=== PATIENT | male | born 1940 | race Caucasian/White ===

== ENCOUNTER 2020-06-15 13:30 | Inpatient (IN) | payer MEDICARE, OTHER ==
[~2020-06-15] VITALS: Ht 172.7 cm; Wt 84.8 kg
[~2020-06-15 13:30] MED LIST: AMLODIPINE BESYL5 MG ORAL; ASPIR 8181 MG ORAL; CARVEDILOL12.5 MG ORAL; CRESTOR10 M2 ORAL; DOCUSATE SODIU100 MG ORAL; ELIQUIS5 MG PO; FLOMAX0.4 MG ORAL; FLUOXETINE HCL20 MG ORAL; FUROSEMIDE20 M1 ORAL; GABAPENTIN600 MG ORAL; HALOPERIDOL1 MG ORAL; KLONOPIN0.5 MG ORAL; LORAZEPAM2 MG/1 M1 IV; METFORMIN HCL500 M1 ORAL; MIRTAZAPINE15 M3 ORAL; MISOPROSTOL200 MCG PO; OXYBUTYNIN CHLOR5 M1 ORAL; PANTOPRAZOLE SO40 MG ORAL; REPAGLINIDE2 MG PO; TEMAZEPAM15 MG ORAL; TOPIRAMATE100 MG ORAL; ZOLPIDEM TARTRAT5 MG ORAL
[2020-06-15] MEDS ORDERED: SAPHRIS10 MG SL (13:39)
[2020-06-15 14:00] VITALS: BP 106/59
--- NOTE | 2020-06-15 14:24 | Emergency Room Report ---
History of Present Illness General Chief Complaint: Multiple Trauma/Fall Source: Patient, EMS Present Illness HPI Patient is a 79-year-old male presents for fall At a facility. Patient had been sent in from [facility]. Had been found lying on the ground. Unknown mechanism of fall. Had not been having any known emesis.Patient had apparently become more confused. Prior history of psychosis. Had apparently been able to schedule an appointment with his doctor and had been high functioning up to this point. Unknown onset of altered mental status. Previous history of urinary tract infections. History is primarily obtained from patient's daughter and ambulance staff. History of chronic A. fib as well as anticoagulant use. 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 COVID-19 Screening: Negative COVID-19 COVID-19 Testing Source: long-term Patient History Past Medical History: see triage record Past Surgical History: unable to obtain Reviewed Nursing Documentation: PMH: Agreed; PSxH: Agreed Nursing Documentation-PMH Hx Hypertension: Yes Hx Asthma: Yes Hx Diabetes: Yes Hx Seizures: Yes Review of Systems All Other Systems: limited - Review of systems: Review systems is limited by patient's being a poor historian Physical Exam Vital Signs Date Time Temp Pulse Resp B/P (MAP) Pulse Ox O2 Delivery O2 Flow Rate FiO2 06/15/20 13:32 94.3 40 16 95/52 (66) General Appearance: alert, moderate distress, obese, Chronically Ill Neck: limited range of motion Respiratory: normal inspection, lungs clear Cardiovascular #1: normal inspection, no edema, edema Gastrointestinal: normal inspection, soft Musculoskeletal: back normal Neurologic: alert, motor strength/tone normal, 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 Differential diagnosis includes not limited to syncopal episode, bowel obstruction, pneumonia, GI bleed, medication overdose among others. Because of complexity of patient's case laboratory tests and imaging studies were ordered. Patient was noted to be initially somnolent with bradycardic rhythm in the 40s.Patient was noted to be somewhat bradycardic initially was given IV atropine due to bradycardia. Laboratory testing shows evidence of urinary infection. Patient was given IV antibiotics. No intracranial hemorrhage was seen on CT imaging. Dr. Carly Navarrete was contacted for inpatient management. Labs Test 06/15/20 14:45 06/15/20 15:15 White Blood Count 12.0 K/UL (4.8-10.8) Red Blood Count 3.07 M/UL (4.70-6.10) Hemoglobin 9.5 G/DL (14.2-18.0) Hematocrit 27.9 % (42.0-52.0) Mean Corpuscular Volume 91 FL (80-99) Mean Corpuscular Hemoglobin 31.0 PG (27.0-31.0) Mean Corpuscular Hemoglobin Concent 34.1 G/DL (32.0-36.0) Red Cell Distribution Width 13.6 % (11.6-14.8) Platelet Count 245 K/UL (150-450) Mean Platelet Volume 7.3 FL (6.5-10.1) Neutrophils (%) (Auto) 71.2 % (45.0-75.0) Lymphocytes (%) (Auto) 16.9 % (20.0-45.0) Monocytes (%) (Auto) 9.1 % (1.0-10.0) Eosinophils (%) (Auto) 2.0 % (0.0-3.0) Basophils (%) (Auto) 0.8 % (0.0-2.0) Prothrombin Time 10.9 SEC (9.30-11.50) Prothromb Time International Ratio 1.0 (0.9-1.1) Activated Partial Thromboplast Time 31 SEC (23-33) Sodium Level 142 MMOL/L (136-145) Potassium Level 3.7 MMOL/L (3.5-5.1) Chloride Level 107 MMOL/L (98-107) Carbon Dioxide Level 25 MMOL/L (21-32) Anion Gap 11 mmol/L (5-15) Blood Urea Nitrogen 46 mg/dL (7-18) Creatinine 2.0 MG/DL (0.55-1.30) Estimat Glomerular Filtration Rate 32.6 mL/min (>60) Glucose Level 110 MG/DL (74-106) Lactic Acid Level 1.40 mmol/L (0.4-2.0) Calcium Level 8.7 MG/DL (8.5-10.1) Total Bilirubin 0.2 MG/DL (0.2-1.0) Aspartate Amino Transf (AST/SGOT) 38 U/L (15-37) Alanine Aminotransferase (ALT/SGPT) 22 U/L (12-78) Alkaline Phosphatase 117 U/L (46-116) Troponin I 0.019 ng/mL (0.000-0.056) C-Reactive Protein, Quantitative 1.2 mg/dL (0.00-0.90) Total Protein 6.5 G/DL (6.4-8.2) Albumin 2.7 G/DL (3.4-5.0) Globulin 3.8 g/dL Albumin/Globulin Ratio 0.7 (1.0-2.7) Urine Color Pale yellow Urine Appearance Very cloudy Urine pH 5 (4.5-8.0) Urine Specific [place] 1.015 (1.005-1.035) Urine Protein 2+ (NEGATIVE) Urine Glucose (UA) Negative (NEGATIVE) Urine Ketones Negative (NEGATIVE) Urine Blood 5+ (NEGATIVE) Urine Nitrite Positive (NEGATIVE) Urine Bilirubin Negative (NEGATIVE) Urine Urobilinogen Normal MG/DL (0.0-1.0) Urine Leukocyte Esterase 3+ (NEGATIVE) Urine RBC Tntc /HPF (0 - 0) Urine WBC Tntc /HPF (0 - 0) Urine Squamous Epithelial Cells None /LPF (NONE/OCC) Urine Bacteria Many /HPF (NONE) EKG Diagnostic Results EKG Time: 14:38 Rate: bradycardiac - 41 Rhythm: NSR, other ST Segments: no acute changes Last Vital Signs Date Time Temp Pulse Resp B/P (MAP) Pulse Ox O2 Delivery O2 Flow Rate FiO2 06/15/20 13:32 94.3 40 16 95/52 (66) Status: unchanged Disposition: ADMITTED INPATIENT Condition: Stable Dell Peterson MD Jun 15, 2020 14:24
[2020-06-15] MEDS ORDERED: Atropine Sulfate 0.4mg/ml inj IVP ONE (14:45)
[2020-06-15 15:45] VITALS: BP 116/66
[2020-06-15 15:46] LABS: BASOPHILS % (AUTO) 0.8 % (0.0-2.0); HEMATOCRIT 27.9 % (42.0-52.0); HEMOGLOBIN 9.5 G/DL (14.2-18.0); LYMPHOCYTES % (AUTO) 16.9 % (20.0-45.0); MEAN CORPUSCULAR VOLUME 91 FL (80-99); MONOCYTES % (AUTO) 9.1 % (1.0-10.0); NEUTROPHILS % (AUTO) 71.2 % (45.0-75.0); PLATELET COUNT 245 K/UL (150-450); RED BLOOD COUNT 3.07 M/UL (4.70-6.10); RED CELL DISTRIBUTION WIDTH 13.6 % (11.6-14.8)
[2020-06-15 16:44] LABS: APPEARANCE,URINE VERY CLOUDY; BILIRUBIN, URINE NEGATIVE (NEGATIVE); COLOR,URINE PALE YELLOW; GLUCOSE, URINE (UA) NEGATIVE (NEGATIVE); KETONES,URINE NEGATIVE (NEGATIVE); LEUKOCYTE ESTERASE ,URINE 3+ (NEGATIVE); NITRITE,URINE POSITIVE (NEGATIVE); PH,URINE 5 (4.5-8.0); PROTEIN,URINE 2+ (NEGATIVE); UROBILINOGEN,URINE NORMAL MG/DL (0.0-1.0)
[2020-06-15 16:50] LABS: CALCIUM 8.7 MG/DL (8.5-10.1); POTASSIUM 3.7 MMOL/L (3.5-5.1)
[2020-06-15 16:59] LABS: ALBUMIN 2.7 G/DL (3.4-5.0); ALBUMIN/GLOBULIN RATIO 0.7 (1.0-2.7); BILIRUBIN,TOTAL 0.2 MG/DL (0.2-1.0)
[2020-06-15] MEDS ORDERED: cefTRIAXone 1 GM in NS 55 ML IVPB ONE (17:00)
--- NOTE | 2020-06-15 17:23 | Diagnostic Imaging Report ---
Indication: Abdominal pain, status post fall Technique: Spiral acquisitions obtained through the abdomen and pelvis. No oral contrast utilized, per emergency room physician request No IV contrast utilized, per referring physician request.. Multiplanar reconstructions were generated. Total dose length product 691 mGycm. CTDIvol(s) 11, 7 mGy. Dose reduction achieved using automated exposure control Comparison: None Findings: Lack of enteric contrast limits assessment of the GI tract. The appendix is not definitely identified, but no findings to suggest acute appendicitis are evident. There are colonic diverticula. Considerable retained dense stool is seen within the colon. There is no evidence of diverticulitis. No small bowel distention. No free or loculated intraperitoneal gas or fluid is evident. Distal esophagus, stomach, duodenum are unremarkable. Lack of IV contrast limits assessment of the solid organs. The liver, gallbladder, bile ducts, pancreas, spleen, adrenals are unremarkable. The kidneys are lobulated. There are renal cysts bilaterally. No retroperitoneal or mesenteric mass or adenopathy. No pelvic mass or adenopathy. The bladder is mildly distended. The included lung bases demonstrate areas of groundglass opacity and patchy denser consolidation. The heart is mildly enlarged. The bones demonstrate degenerative spondylosis changes. Impression: Limited assessment of the GI tract, due to lack of enteric contrast administration Colonic diverticulosis. No evidence of diverticulitis. Considerable retained dense stool. Correlate with any clinical history of constipation No definite acute abdomen or pelvis abnormality Bilateral basilar parenchymal groundglass opacities and patchy dense consolidation. Most likely on the basis of pulmonary edema but could also represent pneumonia. Cardiomegaly Mildly distended bladder Degenerative spondylosis The CT scanner at [facility] is accredited by the [employer] and the scans are performed using protocols designed to limit radiation exposure to as low as reasonably achievable to attain images of sufficient resolution adequate for diagnostic evaluation.
--- NOTE | 2020-06-15 17:29 | Diagnostic Imaging Report ---
Indications: Status post fall, altered mental status, found down Technique: Spiral acquisitions obtained through the brain. Angled axial and coronal 5 x 5 mm slices were reconstructed. Total dose length product 1016 mGycm. CTDI vol(s) mGy. Dose reduction achieved using automated exposure control Comparison: 02/21/2020 Findings: There is age-related enlargement of ventricles and extra axial CSF spaces. 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 Another white matter infarct is seen in the left inferior frontal lobe, new since the prior study but appearing chronic. No acute intracranial hemorrhage or edema, mass effect, nor midline shift. There is periventricular deep white matter low-attenuation, consistent with chronic microvascular ischemic change. There is an old right high posterior parietal cortical infarct again noted. There is an old lacunar infarct in the right basal ganglia, also present previously Otherwise normal whitehead-white differentiation. There is evidence of prior bilateral cataract surgery. The mastoids are clear. The calvarium is intact. Visualized sinuses are unremarkable. 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
[2020-06-15 17:50] VITALS: BP 109/63
--- NOTE | 2020-06-15 19:48 | Consultation ---
Consult Note Consult Note asked to eval for renal failure full note to follow Patient is a 79-year-old male presents for fall At a facility. Patient had been sent in from [facility]. Had been found lying on the ground. Unknown mechanism of fall. Had not been having any known emesis.Patient had apparently become more confused. Prior history of psychosis. Had apparently been able to schedule an appointment with his doctor and had been high functioning up to this point. Unknown onset of altered mental status. Previous history of urinary tract infections. History is primarily obtained from patient's daughter and ambulance staff. History of chronic A. fib as well as anticoagulant use. 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 HEAD AND NECK: No JVD. LUNGS: Coarse rhonchi. CARDIOVASCULAR: Regular S1 and S2 with no gallop or murmur. ABDOMEN: Soft. EXTREMITIES: No pitting edema. LABORATORY AND DIAGNOSTIC DATA: His labs show white count of 27.4, hemoglobin of 10.5, hematocrit of 32, and platelet count of 257. Sodium 141, potassium 3.1, BUN of 41, creatinine of 1.9, and glucose of 137. His troponin was negative. . Assessment/Plan Acute renal failure Dehydration Possible underlying chronic kidney disease Fall, bradycardia Encephalopathy Anemia UTI Psychiatric disease Hydrate Monitor renal parameters Monitor urine output Avoid nephrotoxic's Anemia work-up Continue per consultants, cardiology, psychiatry Aristides Rivas MD Jun 15, 2020 19:48
[2020-06-15 20:00] VITALS: BP 138/84
[2020-06-15] MEDS ORDERED: Acetaminophen 500mg (ES) tab ORAL PRN (20:00)
[2020-06-15] MEDS: D5 1/2NS 1,000 ML IV SCH (20:39)
[2020-06-16] VITALS (7 sets, daily range): BP systolic 101–140; BP diastolic 35–80
[2020-06-16 06:45] LABS: HEMATOCRIT 32.4 % (42.0-52.0); HEMOGLOBIN 10.5 G/DL (14.2-18.0); MEAN CORPUSCULAR VOLUME 95 FL (80-99); PLATELET COUNT 257 K/UL (150-450); RED BLOOD COUNT 3.41 M/UL (4.70-6.10); RED CELL DISTRIBUTION WIDTH 13.8 % (11.6-14.8)
[2020-06-16 07:07] LABS: CREATINE KINASE 342 U/L (26-308)
[2020-06-16 07:31] LABS: WHITE BLOOD COUNT 27.4 K/UL (4.8-10.8)
[2020-06-16 07:34] LABS: % IRON SATURATION 3 % (15-50); IRON 10 ug/dL (50-175); TOTAL IRON BINDING CAPACITY 291 ug/dL (250-450)
[2020-06-16 07:47] LABS: ALANINE AMINOTRANSFERASE 30 U/L (12-78); ALBUMIN 2.9 G/DL (3.4-5.0); ALBUMIN/GLOBULIN RATIO 0.7 (1.0-2.7); ALKALINE PHOSPHATASE 116 U/L (46-116); ANION GAP 10 mmol/L (5-15); ASPARTATE AMINO TRANSFERASE 36 U/L (15-37); BILIRUBIN,TOTAL 0.5 MG/DL (0.2-1.0); BLOOD UREA NITROGEN 41 mg/dL (7-18); CALCIUM 8.5 MG/DL (8.5-10.1); CARBON DIOXIDE 24 MMOL/L (21-32); CHLORIDE 107 MMOL/L (98-107); CHOLESTEROL 125 MG/DL (< 200); CREATININE 1.9 MG/DL (0.55-1.30); FERRITIN 263 NG/ML (8-388); GAMMA GLUTAMYL TRANSPEPTIDASE 60 U/L (5-85); HDL CHOLESTEROL 54 MG/DL (40-60); PHOSPHORUS 2.7 MG/DL (2.5-4.9); POTASSIUM 3.1 MMOL/L (3.5-5.1); SODIUM 141 MMOL/L (136-145); TRIGLYCERIDES 109 MG/DL (30-150)
[2020-06-16] MEDS: D5 1/2NS 1,000 ML IV SCH ×2 (08:12→23:32)
[2020-06-16] MEDS: Docusate 100mg cap ORAL SCH ×3 (08:13→17:03)
[2020-06-16] MEDS: Aspirin EC 81mg tab ORAL SCH (08:13)
[2020-06-16] MEDS ORDERED: Docusate 100mg cap ORAL SCH (09:00)
--- NOTE | 2020-06-16 11:19 | Nephrology Progress Note ---
Assessment/Plan Problem List: (1) DAVEY (acute kidney injury) (2) Dehydration (3) Altered mental status (4) Fall (5) Bradycardia (6) Anemia (7) UTI (urinary tract infection) Assessment Acute renal failure Dehydration Possible underlying chronic kidney disease Fall, bradycardia Encephalopathy Anemia UTI Psychiatric disease Plan June 16: Magnesium and potassium supplement. Folic acid p.o. supplement. Continue slow hydration. Monitor renal parameters. Antibiotics for UTI. Subjective ROS Limited/Unobtainable: No Constitutional: Reports: malaise, weakness Objective Objective Last 24 Hour Vital Signs Date Time Temp Pulse Resp B/P (MAP) Pulse Ox O2 Delivery O2 Flow Rate FiO2 06/16/20 09:00 Room Air 06/16/20 08:00 99.0 67 18 109/49 (69) 96 06/16/20 08:00 84 06/16/20 04:00 97.6 79 20 140/72 (94) 96 06/16/20 04:00 79 06/16/20 00:00 98.6 87 20 126/80 (95) 97 06/16/20 00:00 58 06/15/20 21:00 Room Air 06/15/20 20:00 98.4 84 19 138/84 (102) 98 06/15/20 19:25 Room Air 06/15/20 18:45 96.8 52 20 116/72 98 Room Air 06/15/20 17:50 96.7 48 20 109/63 99 Room Air 06/15/20 15:45 95.9 52 20 116/66 97 06/15/20 14:00 42 18 06/15/20 14:00 95.5 42 20 106/59 06/15/20 13:32 94.3 40 16 95/52 (66) Intake and Output 06/15/20 06/16/20 19:00 07:00 Output Total 560 ml Balance -560 ml Output Urine Total 560 ml Current Medications Medications (Trade) Dose Ordered Sig/Capo Route PRN Reason Start Time Stop Time Status Last Admin Dose Admin Acetaminophen (Tylenol) 500 mg Q4H PRN ORAL pain 06/15/20 20:00 07/15/20 19:59 Aspirin (Ecotrin) 81 mg DAILY ORAL 06/16/20 09:00 07/31/20 08:59 06/16/20 08:13 Dextrose/Sodium Chloride 1,000 ml @ 75 mls/hr [id number] IV 06/15/20 19:45 07/15/20 19:44 06/15/20 20:39 Docusate Sodium (Colace) 100 mg TID ORAL 06/16/20 09:00 07/16/20 08:59 06/16/20 08:13 Pantoprazole (Protonix) 40 mg BID ORAL 06/16/20 09:00 07/16/20 08:59 06/16/20 08:13 Laboratory Tests 06/15/20 14:45: White Blood Count 12.0H, Red Blood Count 3.07L, Hemoglobin 9.5L, Hematocrit 27.9L, Mean Corpuscular Volume 91, Mean Corpuscular Hemoglobin 31.0, Mean Corpuscular Hemoglobin Concent 34.1, Red Cell Distribution Width 13.6, Platelet Count 245, Mean Platelet Volume 7.3, Neutrophils (%) (Auto) 71.2, Lymphocytes (%) (Auto) 16.9L, Monocytes (%) (Auto) 9.1, Eosinophils (%) (Auto) 2.0, Basophils (%) (Auto) 0.8, Prothrombin Time 10.9, Prothromb Time International Ratio 1.0, Activated Partial Thromboplast Time 31, Sodium Level 142, Potassium Level 3.7, Chloride Level 107, Carbon Dioxide Level 25, Anion Gap 11, Blood Urea Nitrogen 46H, Creatinine 2.0H, Estimat Glomerular Filtration Rate 32.6, Glucose Level 110H, Lactic Acid Level 1.40, Calcium Level 8.7, Total Bilirubin 0.2, Aspartate Amino Transf (AST/SGOT) 38H, Alanine Aminotransferase (ALT/SGPT) 22, Alkaline Phosphatase 117H, Troponin I 0.019, C-Reactive Protein, Quantitative 1.2H, Total Protein 6.5, Albumin 2.7L, Globulin 3.8, Albumin/Globulin Ratio 0.7L 06/15/20 15:15: Urine Color Pale yellow, Urine Appearance Very cloudy, Urine pH 5, Urine Specific [place] 1.015, Urine Protein 2+H, Urine Glucose (UA) Negative, Urine Ketones Negative, Urine Blood 5+H, Urine Nitrite PositiveH, Urine Bilirubin Negative, Urine Urobilinogen Normal, Urine Leukocyte Esterase 3+H, Urine RBC TntcH, Urine WBC TntcH, Urine Squamous Epithelial Cells None, Urine Bacteria ManyH 06/16/20 05:59: White Blood Count 27.4#*H, Red Blood Count 3.41L, Hemoglobin 10.5L, Hematocrit 32.4L, Mean Corpuscular Volume 95, Mean Corpuscular Hemoglobin 30.8, Mean Corpuscular Hemoglobin Concent 32.5, Red Cell Distribution Width 13.8, Platelet Count 257, Mean Platelet Volume 7.2, Neutrophils (%) (Auto) , Lymphocytes (%) (Auto) , Monocytes (%) (Auto) , Eosinophils (%) (Auto) , Basophils (%) (Auto) , Sodium Level 141, Potassium Level 3.1L, Chloride Level 107, Carbon Dioxide Level 24, Anion Gap 10, Blood Urea Nitrogen 41H, Creatinine 1.9H, Estimat Glomerular Filtration Rate 34.5, Glucose Level 137H, Calcium Level 8.5, Total Bilirubin 0.5, Aspartate Amino Transf (AST/SGOT) 36, Alanine Aminotransferase (ALT/SGPT) 30, Alkaline Phosphatase 116, C-Reactive Protein, Quantitative 5.3H, Total Protein 7.1, Albumin 2.9L, Globulin 4.2, Albumin/Globulin Ratio 0.7L, Differential Total Cells Counted 100, Neutrophils % (Manual) 87H, Lymphocytes % (Manual) 1L, Monocytes % (Manual) 3, Eosinophils % (Manual) 0, Basophils % ( Manual) 0, Band Neutrophils 9H, Platelet Estimate Adequate, Platelet Morphology Normal, Hypochromasia 1+, Hemoglobin A1c 6.6H, Uric Acid 7.7H, Phosphorus Level 2.7, Magnesium Level 1.7L, Iron Level 10L, Total Iron Binding Capacity 291, Percent Iron Saturation 3L, Unsaturated Iron Binding 281, Ferritin 263, Gamma Glutamyl Transpeptidase 60, Total Creatine Kinase 342H, Pro-B-Type Natriuretic Peptide 7785H, Triglycerides Level 109, Cholesterol Level 125, LDL Cholesterol 52, HDL Cholesterol 54, Cholesterol/HDL Ratio 2.3L, Vitamin B12 Level 371, Folate 7.0L, Thyroid Stimulating Hormone (TSH) 0.876 Height (Feet): 5 Height (Inches): 8.00 Weight (Pounds): 187 General Appearance: no apparent distress, lethargic Cardiovascular: normal rate - Rate 84 Respiratory/Chest: decreased breath sounds Abdomen: soft, distended Aristides Rivas MD Jun 16, 2020 11:19
[2020-06-16] MEDS ORDERED: FLUOXETINE HCL40 MG ORAL (12:02)
[2020-06-16] MEDS ORDERED: LATANOPROST2.5 ML BOTH EYES (12:02)
[2020-06-16] MEDS ORDERED: AMBIEN10 M1 ORAL (12:02)
[2020-06-16] MEDS ORDERED: HALOPERIDOL5 MG ORAL (12:02)
[2020-06-16] MEDS ORDERED: COSOPT EYE DROP10 M1 BOTH EYES (12:02)
[2020-06-16] MEDS ORDERED: CLONAZEPAM0.5 M1 PO (12:02)
[2020-06-16] MEDS ORDERED: OXYBUTYNIN CHLOR5 M2 PO (12:02)
--- NOTE | 2020-06-16 12:13 | Cardiac Electrophysiology PN ---
Subjective Subjective [id number] Objective Last 24 Hour Vital Signs Date Time Temp Pulse Resp B/P (MAP) Pulse Ox O2 Delivery O2 Flow Rate FiO2 06/16/20 09:00 Room Air 06/16/20 08:00 99.0 67 18 109/49 (69) 96 06/16/20 08:00 84 06/16/20 04:00 97.6 79 20 140/72 (94) 96 06/16/20 04:00 79 06/16/20 00:00 98.6 87 20 126/80 (95) 97 06/16/20 00:00 58 06/15/20 21:00 Room Air 06/15/20 20:00 98.4 84 19 138/84 (102) 98 06/15/20 19:25 Room Air 06/15/20 18:45 96.8 52 20 116/72 98 Room Air 06/15/20 17:50 96.7 48 20 109/63 99 Room Air 06/15/20 15:45 95.9 52 20 116/66 97 06/15/20 14:00 42 18 06/15/20 14:00 95.5 42 20 106/59 06/15/20 13:32 94.3 40 16 95/52 (66) Intake and Output 06/15/20 06/16/20 19:00 07:00 Output Total 560 ml Balance -560 ml Output Urine Total 560 ml Laboratory Tests Test 06/15/20 14:45 06/15/20 15:15 06/16/20 05:59 White Blood Count 12.0 K/UL (4.8-10.8) H 27.4 K/UL (4.8-10.8) #*H Red Blood Count 3.07 M/UL (4.70-6.10) L 3.41 M/UL (4.70-6.10) L Hemoglobin 9.5 G/DL (14.2-18.0) L 10.5 G/DL (14.2-18.0) L Hematocrit 27.9 % (42.0-52.0) L 32.4 % (42.0-52.0) L Mean Corpuscular Volume 91 FL (80-99) 95 FL (80-99) Mean Corpuscular Hemoglobin 31.0 PG (27.0-31.0) 30.8 PG (27.0-31.0) Mean Corpuscular Hemoglobin Concent 34.1 G/DL (32.0-36.0) 32.5 G/DL (32.0-36.0) Red Cell Distribution Width 13.6 % (11.6-14.8) 13.8 % (11.6-14.8) Platelet Count 245 K/UL (150-450) 257 K/UL (150-450) Mean Platelet Volume 7.3 FL (6.5-10.1) 7.2 FL (6.5-10.1) Neutrophils (%) (Auto) 71.2 % (45.0-75.0) % (45.0-75.0) Lymphocytes (%) (Auto) 16.9 % (20.0-45.0) L % (20.0-45.0) Monocytes (%) (Auto) 9.1 % (1.0-10.0) % (1.0-10.0) Eosinophils (%) (Auto) 2.0 % (0.0-3.0) % (0.0-3.0) Basophils (%) (Auto) 0.8 % (0.0-2.0) % (0.0-2.0) Prothrombin Time 10.9 SEC (9.30-11.50) Prothromb Time International Ratio 1.0 (0.9-1.1) Activated Partial Thromboplast Time 31 SEC (23-33) Sodium Level 142 MMOL/L (136-145) 141 MMOL/L (136-145) Potassium Level 3.7 MMOL/L (3.5-5.1) 3.1 MMOL/L (3.5-5.1) L Chloride Level 107 MMOL/L (98-107) 107 MMOL/L (98-107) Carbon Dioxide Level 25 MMOL/L (21-32) 24 MMOL/L (21-32) Anion Gap 11 mmol/L (5-15) 10 mmol/L (5-15) Blood Urea Nitrogen 46 mg/dL (7-18) H 41 mg/dL (7-18) H Creatinine 2.0 MG/DL (0.55-1.30) H 1.9 MG/DL (0.55-1.30) H Estimat Glomerular Filtration Rate 32.6 mL/min (>60) 34.5 mL/min (>60) Glucose Level 110 MG/DL (74-106) H 137 MG/DL (74-106) H Lactic Acid Level 1.40 mmol/L (0.4-2.0) Calcium Level 8.7 MG/DL (8.5-10.1) 8.5 MG/DL (8.5-10.1) Total Bilirubin 0.2 MG/DL (0.2-1.0) 0.5 MG/DL (0.2-1.0) Aspartate Amino Transf (AST/SGOT) 38 U/L (15-37) H 36 U/L (15-37) Alanine Aminotransferase (ALT/SGPT) 22 U/L (12-78) 30 U/L (12-78) Alkaline Phosphatase 117 U/L (46-116) H 116 U/L (46-116) Troponin I 0.019 ng/mL (0.000-0.056) C-Reactive Protein, Quantitative 1.2 mg/dL (0.00-0.90) H 5.3 mg/dL (0.00-0.90) H Total Protein 6.5 G/DL (6.4-8.2) 7.1 G/DL (6.4-8.2) Albumin 2.7 G/DL (3.4-5.0) L 2.9 G/DL (3.4-5.0) L Globulin 3.8 g/dL 4.2 g/dL Albumin/Globulin Ratio 0.7 (1.0-2.7) L 0.7 (1.0-2.7) L Urine Color Pale yellow Urine Appearance Very cloudy Urine pH 5 (4.5-8.0) Urine Specific [place] 1.015 (1.005-1.035) Urine Protein 2+ (NEGATIVE) H Urine Glucose (UA) Negative (NEGATIVE) Urine Ketones Negative (NEGATIVE) Urine Blood 5+ (NEGATIVE) H Urine Nitrite Positive (NEGATIVE) H Urine Bilirubin Negative (NEGATIVE) Urine Urobilinogen Normal MG/DL (0.0-1.0) Urine Leukocyte Esterase 3+ (NEGATIVE) H Urine RBC Tntc /HPF (0 - 0) H Urine WBC Tntc /HPF (0 - 0) H Urine Squamous Epithelial Cells None /LPF (NONE/OCC) Urine Bacteria Many /HPF (NONE) H Differential Total Cells Counted 100 Neutrophils % (Manual) 87 % (45-75) H Lymphocytes % (Manual) 1 % (20-45) L Monocytes % (Manual) 3 % (1-10) Eosinophils % (Manual) 0 % (0-3) Basophils % (Manual) 0 % (0-2) Band Neutrophils 9 % (0-8) H Platelet Estimate Adequate Platelet Morphology Normal Hypochromasia 1+ Hemoglobin A1c 6.6 % (4.3-6.0) H Uric Acid 7.7 MG/DL (2.6-7.2) H Phosphorus Level 2.7 MG/DL (2.5-4.9) Magnesium Level 1.7 MG/DL (1.8-2.4) L Iron Level 10 ug/dL (50-175) L Total Iron Binding Capacity 291 ug/dL (250-450) Percent Iron Saturation 3 % (15-50) L Unsaturated Iron Binding 281 ug/dL (112-346) Ferritin 263 NG/ML (8-388) Gamma Glutamyl Transpeptidase 60 U/L (5-85) Total Creatine Kinase 342 U/L (26-308) H Pro-B-Type Natriuretic Peptide 7785 pg/mL (0-125) H Triglycerides Level 109 MG/DL (30-150) Cholesterol Level 125 MG/DL (< 200) LDL Cholesterol 52 mg/dL (<100) HDL Cholesterol 54 MG/DL (40-60) Cholesterol/HDL Ratio 2.3 (3.3-4.4) L Vitamin B12 Level 371 PG/ML (193-986) Folate 7.0 NG/ML (8.6-58.9) L Thyroid Stimulating Hormone (TSH) 0.876 uiU/mL (0.358-3.740) Microbiology Date/Time Source Procedure Growth Status 06/15/20 15:15 Urine,Clean Catch Urine Culture - Preliminary Gram Negative Adriano Resulted Virgil Keating MD Jun 16, 2020 12:13
[2020-06-16] MEDS ORDERED: Iron Sucrose 200 MG in NS 110 ML IVPB SCH (13:00)
--- NOTE | 2020-06-16 16:00 | Consultation ---
DATE OF CONSULTATION: 06/16/2020 INFECTIOUS DISEASE CONSULTATION CONSULTING PHYSICIAN: Edward Ruvalcaba MD. PRIMARY ATTENDING PHYSICIAN: Carly Chilel MD. REASON FOR CONSULT: UTI, leukocytosis. HISTORY OF PRESENT ILLNESS: This is a 79-year-old white male admitted yesterday from a nursing facility. He was found lying on the ground, unknown mechanism of fall. He had leukocytosis of 12,000 at the time of admission that increased to 27.4. He is hypothermic with temperature 94.3 and bradycardic with pulse rate of 40. PAST MEDICAL HISTORY: Diabetes mellitus, seizure disorder, asthma, hypertension, MRSA carrier, VRE carrier. History of admission to [facility] in February 2020 with UTI. At that time, he had ESBL organism in urine. He has likely chronic kidney disease. ALLERGIES: Allergic to codeine, statins. MEDICATIONS: Epogen, iron, sucrose, folic acid, Protonix, aspirin, and Tylenol. Got a dose of ceftriaxone yesterday. SOCIAL HISTORY: prison resident. Quit smoking many years ago. No history of drug or alcohol abuse. REVIEW OF SYSTEMS: The patient had no fever, no chills. Has occasional cough. No nausea. No vomiting. No dysuria. PHYSICAL EXAMINATION: VITAL SIGNS: Temperature 99, pulse 67, blood pressure 109/49. GENERAL APPEARANCE: Seems well developed. HEAD AND NECK: [place] conjunctivae. HEART: Normal rate. LUNGS: Clear. ABDOMEN: Soft, nontender. EXTREMITIES: He has bilateral sequential compression device. NEUROLOGIC: He is awake, alert, responsive. LABORATORY AND DIAGNOSTIC DATA: WBC 27.4, hemoglobin 10.5, hematocrit 32.4, platelets 257,000. Sodium 141, potassium 3.1, chloride 107, bicarb 24, BUN 41, creatinine 1.9. Hemoglobin A1c 6.6. CK of 342. TSH was within normal limits. Folic acid was low. Urine culture growing gram-negative rods. UA showed wbc too numerous to count, rbc too numerous to count, leukocyte esterase 3+, nitrite positive. IMPRESSION: Pyuria, bacteriuria, likely UTI, had leukocytosis. He had bradycardia and hypothermia at the time of admission, had altered mental status. 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 He has pulmonary hypertension, has acute renal failure, chronic kidney disease. He has anemia, has diverticulosis. RECOMMENDATION: Start the patient on Zosyn. We will follow up the cultures. At the end of my exam, I thank Dr. Chilel for involving me in the care of this patient. Edward Ruvalcaba M.D. DR: ALLEN JOB#: [id number] CC:
[2020-06-16] MEDS: Piperacillin/Tazobactam 3.375 GM in NS 110 ML IVPB SCH (17:03)
--- NOTE | 2020-06-16 19:30 | Consultation ---
DATE OF CONSULTATION: 06/16/2020 CARDIOLOGY CONSULTATION CONSULTING PHYSICIAN: Virgil Keating MD REFERRING PHYSICIAN: Carly Chilel MD REASON FOR CONSULTATION: Status post fall and hypotension in a patient with history of atrial fibrillation and bradycardia. HISTORY OF PRESENT ILLNESS: Patient is a 79-year-old gentleman who was sent from [facility] after patient was found on the ground with unclear nature of syncope versus fall. Patient has a history of psychosis and has been able to schedule appointment with his doctor . Patient was found to have heart rate of only 40 and the blood pressure was in the 90s. Cardiology consultation was obtained for further evaluation and management. REVIEW OF SYSTEMS: Negative other than what was mentioned in history of present illness. PAST MEDICAL HISTORY: As mentioned above. FAMILY HISTORY: Noncontributory. SOCIAL HISTORY: He is a residential resident. Does not smoke or drink alcohol. PHYSICAL EXAMINATION: VITAL SIGNS: Blood pressure of 109/49, pulse is 67, respirations 18, and temperature is 99. HEAD AND NECK: No JVD. LUNGS: Coarse rhonchi. CARDIOVASCULAR: Regular S1 and S2 with no gallop or murmur. ABDOMEN: Soft. EXTREMITIES: No pitting edema. LABORATORY AND DIAGNOSTIC DATA: His labs show white count of 27.4, hemoglobin of 10.5, hematocrit of 32, and platelet count of 257. Sodium 141, potassium 3.1, BUN of 41, creatinine of 1.9, and glucose of 137. His troponin was negative. ASSESSMENT AND PLAN: 1. Status post fall. First troponin is negative. We will completely rule out IA protocol. It could be due to dehydration, even though patient also had bradycardia with heart rate down to 40s. Off any sinus node AV fransisca blocking agent. We will watch the patient on telemetry, on IV fluids. We will get an echocardiogram for further evaluation. 2. History of atrial fibrillation, currently on aspirin and off beta-zarina, and maybe that is because of patient's syncope and sick sinus syndrome and patient's paroxysmal atrial fibrillation. 3. Renal failure, creatinine of 2. Further evaluation by Dr. Rivas. Thank you very much for allowing me to participate in the care of this patient. Please do not hesitate to contact me for any questions regarding my evaluation. Virgil Keating M.D. DR: VIC JOB#: [id number] CC:
--- NOTE | 2020-06-16 22:14 | History and Physical Report ---
DATE OF ADMISSION: 06/15/2020 HISTORY OF PRESENT ILLNESS: Patient is here because of fall at the facility. He was also bradycardic, hypotensive. He was admitted for UTI. Got Rocephin in the emergency room. CT of the head was negative according to the ER doctor. Has history of atrial fibrillation and is on Eliquis. Patient denies nausea, vomiting, or diarrhea. No fever or chills. No shortness of breath. Denies cough. Denies chills. Denies headache. Denies change in vision or speech pattern. PAST MEDICAL HISTORY: Significant for atrial fibrillation, hypertension, anxiety, depression, NIDDM, glaucoma, urinary incontinence, GERD, BPH. PAST SURGICAL HISTORY: Denies. ALLERGIES: To codeine, statins. MEDICATIONS: Eliquis, fluoxetine, gabapentin, Xalatan, oxybutynin, Protonix, Crestor, and Flomax. FAMILY HISTORY: Does have history of heart disease. SOCIAL HISTORY: Denies history of alcohol abuse. No history of drug abuse. No history of smoking. Comes from a facility. REVIEW OF SYSTEMS: HEENT: Denies headaches. RESPIRATORY: Denies shortness of breath. Denies cough. CARDIOVASCULAR: Denies chest pain. GASTROINTESTINAL: Denies nausea, vomiting, or diarrhea. EXTREMITIES: Does have mild pain. CENTRAL NERVOUS SYSTEM: Denies change in speech pattern. PHYSICAL EXAMINATION: VITAL SIGNS: Temperature is 98.6, pulse is 87, blood pressure is 126/80. HEENT: PERRLA. NECK: Supple. No lymphadenopathy. CHEST: Clear to auscultation. CARDIOVASCULAR: Irregularly irregular. No murmurs. GASTROINTESTINAL: Soft, nontender, nondistended. No organomegaly. EXTREMITIES: No edema. Moves all four extremities. NEUROLOGIC: Has generalized weakness. Reflexes in both sides. LABORATORY DATA: WBC of 12, hemoglobin of 9.5, platelets of 245. Sodium 142, potassium of 3.7, BUN of 46, creatinine of 2, glucose of 110. ASSESSMENT AND PLAN: Acute renal failure, history of atrial fibrillation, hypertension, initially bradycardic, status post fall, UTI. I have consulted Dr. Keating, Dr. Rivas, Dr. Edward Ruvalcaba for rule out sepsis and also for the UTI treatment and Dr. Keating will be in charge of helping with arrhythmias and treatment as well as Dr. Rivas for the acute renal failure, most likely due to dehydration. Carly Chilel M.D. DR: ODETTE JOB#: [id number] CC:
[2020-06-17] VITALS: BP 115/50
[2020-06-17] MEDS: Piperacillin/Tazobactam 3.375 GM in NS 110 ML IVPB SCH ×3 (01:17→17:01)
[2020-06-17 04:00] VITALS: BP 106/47
[2020-06-17 07:16] LABS: HEMATOCRIT 26.5 % (42.0-52.0); HEMOGLOBIN 8.8 G/DL (14.2-18.0); MEAN CORPUSCULAR VOLUME 93 FL (80-99); PLATELET COUNT 184 K/UL (150-450); RED BLOOD COUNT 2.84 M/UL (4.70-6.10); RED CELL DISTRIBUTION WIDTH 13.9 % (11.6-14.8); WHITE BLOOD COUNT 15.6 K/UL (4.8-10.8)
[2020-06-17 08:00] VITALS: BP 115/54
[2020-06-17 08:05] LABS: ALANINE AMINOTRANSFERASE 47 U/L (12-78); ALBUMIN 2.3 G/DL (3.4-5.0); ALBUMIN/GLOBULIN RATIO 0.6 (1.0-2.7); ALKALINE PHOSPHATASE 103 U/L (46-116); ANION GAP 10 mmol/L (5-15); ASPARTATE AMINO TRANSFERASE 58 U/L (15-37); BILIRUBIN,TOTAL 0.4 MG/DL (0.2-1.0); BLOOD UREA NITROGEN 51 mg/dL (7-18); CALCIUM 7.7 MG/DL (8.5-10.1); CARBON DIOXIDE 23 MMOL/L (21-32); CHLORIDE 107 MMOL/L (98-107); CHOLESTEROL 102 MG/DL (< 200); CREATINE KINASE 254 U/L (26-308); CREATININE 2.1 MG/DL (0.55-1.30); HDL CHOLESTEROL 49 MG/DL (40-60); PHOSPHORUS 2.9 MG/DL (2.5-4.9); POTASSIUM 3.4 MMOL/L (3.5-5.1); SODIUM 140 MMOL/L (136-145); TRIGLYCERIDES 60 MG/DL (30-150)
[2020-06-17] MEDS: Aspirin EC 81mg tab ORAL SCH (09:09)
[2020-06-17] MEDS: Docusate 100mg cap ORAL SCH ×3 (09:09→17:35)
--- NOTE | 2020-06-17 11:50 | Infectious Diseases Prog Note ---
Assessment/Plan Assessment/Plan IMPRESSION: E coli UTI, Leukocytosis, Improving Bradycardia Hypothermia, resolved Altered mental Old CVA Pulmonary hypertension, Acute renal failure, chronic kidney disease Anemia, Diverticulosis. RECOMMENDATION: Continue Zosyn. MRSA carrier Subjective ROS Limited/Unobtainable: No Constitutional: Reports: no symptoms Cardiovascular: Reports: no symptoms Gastrointestinal/Abdominal: Reports: no symptoms Genitourinary: Reports: no symptoms Allergies: Coded Allergies: CODEINE (Verified Allergy, Unknown, 02/21/20) [id number]-[id number] REDUCTASE INHIBITOR (Verified Allergy, Unknown, 02/21/20) Objective Last 24 Hour Vital Signs Date Time Temp Pulse Resp B/P (MAP) Pulse Ox O2 Delivery O2 Flow Rate FiO2 06/17/20 08:00 59 06/17/20 08:00 98.1 60 22 115/54 (74) 98 06/17/20 04:00 97.7 51 18 106/47 (66) 94 06/17/20 04:00 56 06/17/20 00:00 98.1 65 17 115/50 (71) 96 06/17/20 00:00 56 06/16/20 21:00 Room Air 06/16/20 21:00 97.7 58 19 110/42 (64) 94 06/16/20 20:00 97.7 58 19 110/42 (64) 94 06/16/20 20:00 60 06/16/20 16:00 57 06/16/20 16:00 97.9 62 20 114/48 (70) 97 06/16/20 12:00 97.5 59 20 101/35 (57) 96 06/16/20 12:00 54 Height (Feet): 5 Height (Inches): 8.00 Weight (Pounds): 187 General Appearance: no acute distress HEENT: mucous membranes moist Respiratory/Chest: lungs clear Cardiovascular: normal rate Abdomen: soft, non tender Genitourinary: other - [place] catheter Extremities: no edema Neurologic/Psychiatric: alert, responsive Microbiology Date/Time Source Procedure Growth Status 06/15/20 17:50 Rectum - Final NO CARBAPENEM-RESISTANT ENTEROBACTERI... Complete 06/15/20 17:50 Nasal Nares MRSA Culture - Final Staphylococcus Aureus - Mrsa Complete 06/15/20 15:15 Urine,Clean Catch Urine Culture - Final Escherichia Coli - Esbl Complete 06/15/20 15:15 Blood Blood Culture - Preliminary NO GROWTH AFTER 24 HOURS Resulted 06/15/20 14:45 Blood Blood Culture - Preliminary NO GROWTH AFTER 24 HOURS Resulted Laboratory Tests Test 06/17/20 05:56 White Blood Count 15.6 K/UL (4.8-10.8) H Red Blood Count 2.84 M/UL (4.70-6.10) L Hemoglobin 8.8 G/DL (14.2-18.0) L Hematocrit 26.5 % (42.0-52.0) L Mean Corpuscular Volume 93 FL (80-99) Mean Corpuscular Hemoglobin 31.0 PG (27.0-31.0) Mean Corpuscular Hemoglobin Concent 33.1 G/DL (32.0-36.0) Red Cell Distribution Width 13.9 % (11.6-14.8) Platelet Count 184 K/UL (150-450) Mean Platelet Volume 7.7 FL (6.5-10.1) Neutrophils (%) (Auto) % (45.0-75.0) Lymphocytes (%) (Auto) % (20.0-45.0) Monocytes (%) (Auto) % (1.0-10.0) Eosinophils (%) (Auto) % (0.0-3.0) Basophils (%) (Auto) % (0.0-2.0) Differential Total Cells Counted 100 Neutrophils % (Manual) 89 % (45-75) H Lymphocytes % (Manual) 4 % (20-45) L Monocytes % (Manual) 5 % (1-10) Eosinophils % (Manual) 2 % (0-3) Basophils % (Manual) 0 % (0-2) Band Neutrophils 0 % (0-8) Platelet Estimate Adequate Platelet Morphology Normal Hypochromasia 1+ Sodium Level 140 MMOL/L (136-145) Potassium Level 3.4 MMOL/L (3.5-5.1) L Chloride Level 107 MMOL/L (98-107) Carbon Dioxide Level 23 MMOL/L (21-32) Anion Gap 10 mmol/L (5-15) Blood Urea Nitrogen 51 mg/dL (7-18) H Creatinine 2.1 MG/DL (0.55-1.30) H Estimat Glomerular Filtration Rate 30.8 mL/min (>60) Glucose Level 97 MG/DL (74-106) Uric Acid 7.5 MG/DL (2.6-7.2) H Calcium Level 7.7 MG/DL (8.5-10.1) L Phosphorus Level 2.9 MG/DL (2.5-4.9) Magnesium Level 2.3 MG/DL (1.8-2.4) Total Bilirubin 0.4 MG/DL (0.2-1.0) Aspartate Amino Transf (AST/SGOT) 58 U/L (15-37) H Alanine Aminotransferase (ALT/SGPT) 47 U/L (12-78) Alkaline Phosphatase 103 U/L (46-116) Total Creatine Kinase 254 U/L (26-308) Troponin I 0.091 ng/mL (0.000-0.056) C-Reactive Protein, Quantitative 17.4 mg/dL (0.00-0.90) H Pro-B-Type Natriuretic Peptide 63915 pg/mL (0-125) H Total Protein 6.0 G/DL (6.4-8.2) L Albumin 2.3 G/DL (3.4-5.0) L Globulin 3.7 g/dL Albumin/Globulin Ratio 0.6 (1.0-2.7) L Triglycerides Level 60 MG/DL (30-150) Cholesterol Level 102 MG/DL (< 200) LDL Cholesterol 38 mg/dL (<100) HDL Cholesterol 49 MG/DL (40-60) Cholesterol/HDL Ratio 2.1 (3.3-4.4) L Thyroid Stimulating Hormone (TSH) 0.662 uiU/mL (0.358-3.740) Free Thyroxine 1.24 NG/DL (0.76-1.46) Current Medications Medications (Trade) Dose Ordered Sig/Capo Route PRN Reason Start Time Stop Time Status Last Admin Dose Admin Acetaminophen (Tylenol) 500 mg Q4H PRN ORAL pain 06/15/20 20:00 07/15/20 19:59 Aspirin (Ecotrin) 81 mg DAILY ORAL 06/16/20 09:00 07/31/20 08:59 06/17/20 09:09 Dextrose/Sodium Chloride 1,000 ml @ 50 mls/hr Q20H IV 06/15/20 19:45 07/15/20 19:44 06/16/20 23:32 Docusate Sodium (Colace) 100 mg TID ORAL 06/16/20 09:00 07/16/20 08:59 06/17/20 09:09 Epoetin Catracho (Epoetin Catracho-EPBX(NON ESRD)) 2,000 unit SUBQ 06/17/20 21:00 09/15/20 20:59 Epoetin Catracho (Epoetin Catracho-EPBX(NON ESRD)) 3,000 unit SUBQ 06/17/20 21:00 09/15/20 20:59 Folic Acid (Folate) 1 mg DAILY ORAL 06/16/20 11:30 07/16/20 11:29 06/17/20 09:09 Pantoprazole (Protonix) 40 mg BID ORAL 06/16/20 09:00 07/16/20 08:59 06/17/20 09:09 Piperacillin Sod/ Tazobactam Sod 3.375 gm/Sodium Chloride 110 ml @ 27.5 mls/hr Q8H IVPB 06/16/20 17:00 06/23/20 16:59 06/17/20 09:08 Edward Ruvalcaba MD Jun 17, 2020 11:50
[2020-06-17 12:00] VITALS: BP 119/65
--- NOTE | 2020-06-17 12:04 | Nephrology Progress Note ---
Assessment/Plan Problem List: (1) DAVEY (acute kidney injury) (2) Dehydration (3) Altered mental status (4) Fall (5) Bradycardia (6) Anemia (7) UTI (urinary tract infection) Assessment Acute renal failure Dehydration Possible underlying chronic kidney disease Fall, bradycardia Encephalopathy Anemia UTI Psychiatric disease Plan June 17: Labs reviewed. Serum creatinine stable. Continue current management. Blood pressure stable. June 16: Magnesium and potassium supplement. Folic acid p.o. supplement. Continue slow hydration. Monitor renal parameters. Antibiotics for UTI. Subjective ROS Limited/Unobtainable: No Constitutional: Reports: malaise, weakness Objective Objective Last 24 Hour Vital Signs Date Time Temp Pulse Resp B/P (MAP) Pulse Ox O2 Delivery O2 Flow Rate FiO2 06/17/20 08:00 59 06/17/20 08:00 98.1 60 22 115/54 (74) 98 06/17/20 04:00 97.7 51 18 106/47 (66) 94 06/17/20 04:00 56 06/17/20 00:00 98.1 65 17 115/50 (71) 96 06/17/20 00:00 56 06/16/20 21:00 Room Air 06/16/20 21:00 97.7 58 19 110/42 (64) 94 06/16/20 20:00 97.7 58 19 110/42 (64) 94 06/16/20 20:00 60 06/16/20 16:00 57 06/16/20 16:00 97.9 62 20 114/48 (70) 97 Intake and Output 06/16/20 06/17/20 19:00 07:00 Intake Total 1075 ml 900 ml Output Total 630 ml Balance 1075 ml 270 ml Intake Oral 1000 ml IV Total 75 ml 900 ml Output Urine Total 630 ml # Voids 4 Current Medications Medications (Trade) Dose Ordered Sig/Capo Route PRN Reason Start Time Stop Time Status Last Admin Dose Admin Acetaminophen (Tylenol) 500 mg Q4H PRN ORAL pain 06/15/20 20:00 07/15/20 19:59 Aspirin (Ecotrin) 81 mg DAILY ORAL 06/16/20 09:00 07/31/20 08:59 06/17/20 09:09 Dextrose/Sodium Chloride 1,000 ml @ 50 mls/hr Q20H IV 06/15/20 19:45 07/15/20 19:44 06/16/20 23:32 Docusate Sodium (Colace) 100 mg TID ORAL 06/16/20 09:00 07/16/20 08:59 06/17/20 09:09 Epoetin Catracho (Epoetin Catracho-EPBX(NON ESRD)) 2,000 unit SUBQ 06/17/20 21:00 09/15/20 20:59 Epoetin Catracho (Epoetin Catracho-EPBX(NON ESRD)) 3,000 unit SUBQ 06/17/20 21:00 09/15/20 20:59 Folic Acid (Folate) 1 mg DAILY ORAL 06/16/20 11:30 07/16/20 11:29 06/17/20 09:09 Pantoprazole (Protonix) 40 mg BID ORAL 06/16/20 09:00 07/16/20 08:59 06/17/20 09:09 Piperacillin Sod/ Tazobactam Sod 3.375 gm/Sodium Chloride 110 ml @ 27.5 mls/hr Q8H IVPB 06/16/20 17:00 06/23/20 16:59 06/17/20 09:08 Laboratory Tests 06/17/20 05:56: White Blood Count 15.6H, Red Blood Count 2.84L, Hemoglobin 8.8L, Hematocrit 26.5L, Mean Corpuscular Volume 93, Mean Corpuscular Hemoglobin 31.0, Mean Corpuscular Hemoglobin Concent 33.1, Red Cell Distribution Width 13.9, Platelet Count 184, Mean Platelet Volume 7.7, Neutrophils (%) (Auto) , Lymphocytes (%) (Auto) , Monocytes (%) (Auto) , Eosinophils (%) (Auto) , Basophils (%) (Auto) , Differential Total Cells Counted 100, Neutrophils % (Manual) 89H, Lymphocytes % (Manual) 4L, Monocytes % (Manual) 5, Eosinophils % (Manual) 2, Basophils % (Manual) 0, Band Neutrophils 0, Platelet Estimate Adequate, Platelet Morphology Normal, Hypochromasia 1+, Sodium Level 140, Potassium Level 3.4L, Chloride Level 107, Carbon Dioxide Level 23, Anion Gap 10, Blood Urea Nitrogen 51H, Creatinine 2.1H, Estimat Glomerular Filtration Rate 30.8, Glucose Level 97, Uric Acid 7.5H, Calcium Level 7.7L, Phosphorus Level 2.9, Magnesium Level 2.3, Total Bilirubin 0.4, Aspartate Amino Transf (AST/SGOT) 58H, Alanine Aminotransferase (ALT/SGPT) 47, Alkaline Phosphatase 103, Total Creatine Kinase 254, Troponin I 0.091H, C- Reactive Protein, Quantitative 17.4H, Pro-B-Type Natriuretic Peptide 47367B, Total Protein 6.0L, Albumin 2.3L, Globulin 3.7, Albumin/Globulin Ratio 0.6L, Triglycerides Level 60, Cholesterol Level 102, LDL Cholesterol 38, HDL Cho lesterol 49, Cholesterol/HDL Ratio 2.1L, Thyroid Stimulating Hormone (TSH) 0.662, Free Thyroxine 1.24 Height (Feet): 5 Height (Inches): 8.00 Weight (Pounds): 187 General Appearance: lethargic Cardiovascular: bradycardia Respiratory/Chest: decreased breath sounds Abdomen: soft Aristides Rivas MD Jun 17, 2020 12:04
[2020-06-17] MEDS: D5 1/2NS 1,000 ML IV SCH (12:08)
--- NOTE | 2020-06-17 12:12 | Cardiac Electrophysiology PN ---
Assessment/Plan Assessment/Plan 1. Status post fall. First troponin is negative. Second troponin is mildly elevated that could be due to renal failure. It could be due to dehydration, even though patient also had bradycardia with heart rate down to 40s. We will watch the patient on telemetry, on IV fluids. Echocardiogram EF 65% 2. History of atrial fibrillation, currently on aspirin and off beta-zarina and may be that is because of patient's syncope and sick sinus syndrome and patient's paroxysmal atrial fibrillation. Also bradycardic in 50s. S/P DCCV in the past 3. Renal failure, creatinine of 2. Fu by Dr. Rivas. 4. High WBC 27K on iv Abx DW RN Subjective Subjective Had HR 50s. In Seizure precaution. Hx of DCCV and arrest in the past. WBC still high Objective Last 24 Hour Vital Signs Date Time Temp Pulse Resp B/P (MAP) Pulse Ox O2 Delivery O2 Flow Rate FiO2 06/17/20 08:00 59 06/17/20 08:00 98.1 60 22 115/54 (74) 98 06/17/20 04:00 97.7 51 18 106/47 (66) 94 06/17/20 04:00 56 06/17/20 00:00 98.1 65 17 115/50 (71) 96 06/17/20 00:00 56 06/16/20 21:00 Room Air 06/16/20 21:00 97.7 58 19 110/42 (64) 94 06/16/20 20:00 97.7 58 19 110/42 (64) 94 06/16/20 20:00 60 06/16/20 16:00 57 06/16/20 16:00 97.9 62 20 114/48 (70) 97 Intake and Output 06/16/20 06/17/20 19:00 07:00 Intake Total 1075 ml 900 ml Output Total 630 ml Balance 1075 ml 270 ml Intake Oral 1000 ml IV Total 75 ml 900 ml Output Urine Total 630 ml # Voids 4 Laboratory Tests Test 06/17/20 05:56 White Blood Count 15.6 K/UL (4.8-10.8) H Red Blood Count 2.84 M/UL (4.70-6.10) L Hemoglobin 8.8 G/DL (14.2-18.0) L Hematocrit 26.5 % (42.0-52.0) L Mean Corpuscular Volume 93 FL (80-99) Mean Corpuscular Hemoglobin 31.0 PG (27.0-31.0) Mean Corpuscular Hemoglobin Concent 33.1 G/DL (32.0-36.0) Red Cell Distribution Width 13.9 % (11.6-14.8) Platelet Count 184 K/UL (150-450) Mean Platelet Volume 7.7 FL (6.5-10.1) Neutrophils (%) (Auto) % (45.0-75.0) Lymphocytes (%) (Auto) % (20.0-45.0) Monocytes (%) (Auto) % (1.0-10.0) Eosinophils (%) (Auto) % (0.0-3.0) Basophils (%) (Auto) % (0.0-2.0) Differential Total Cells Counted 100 Neutrophils % (Manual) 89 % (45-75) H Lymphocytes % (Manual) 4 % (20-45) L Monocytes % (Manual) 5 % (1-10) Eosinophils % (Manual) 2 % (0-3) Basophils % (Manual) 0 % (0-2) Band Neutrophils 0 % (0-8) Platelet Estimate Adequate Platelet Morphology Normal Hypochromasia 1+ Sodium Level 140 MMOL/L (136-145) Potassium Level 3.4 MMOL/L (3.5-5.1) L Chloride Level 107 MMOL/L (98-107) Carbon Dioxide Level 23 MMOL/L (21-32) Anion Gap 10 mmol/L (5-15) Blood Urea Nitrogen 51 mg/dL (7-18) H Creatinine 2.1 MG/DL (0.55-1.30) H Estimat Glomerular Filtration Rate 30.8 mL/min (>60) Glucose Level 97 MG/DL (74-106) Uric Acid 7.5 MG/DL (2.6-7.2) H Calcium Level 7.7 MG/DL (8.5-10.1) L Phosphorus Level 2.9 MG/DL (2.5-4.9) Magnesium Level 2.3 MG/DL (1.8-2.4) Total Bilirubin 0.4 MG/DL (0.2-1.0) Aspartate Amino Transf (AST/SGOT) 58 U/L (15-37) H Alanine Aminotransferase (ALT/SGPT) 47 U/L (12-78) Alkaline Phosphatase 103 U/L (46-116) Total Creatine Kinase 254 U/L (26-308) Troponin I 0.091 ng/mL (0.000-0.056) C-Reactive Protein, Quantitative 17.4 mg/dL (0.00-0.90) H Pro-B-Type Natriuretic Peptide 42504 pg/mL (0-125) H Total Protein 6.0 G/DL (6.4-8.2) L Albumin 2.3 G/DL (3.4-5.0) L Globulin 3.7 g/dL Albumin/Globulin Ratio 0.6 (1.0-2.7) L Triglycerides Level 60 MG/DL (30-150) Cholesterol Level 102 MG/DL (< 200) LDL Cholesterol 38 mg/dL (<100) HDL Cholesterol 49 MG/DL (40-60) Cholesterol/HDL Ratio 2.1 (3.3-4.4) L Thyroid Stimulating Hormone (TSH) 0.662 uiU/mL (0.358-3.740) Free Thyroxine 1.24 NG/DL (0.76-1.46) Microbiology Date/Time Source Procedure Growth Status 06/15/20 17:50 Rectum - Final NO CARBAPENEM-RESISTANT ENTEROBACTERI... Complete 06/15/20 17:50 Nasal Nares MRSA Culture - Final Staphylococcus Aureus - Mrsa Complete 06/15/20 15:15 Urine,Clean Catch Urine Culture - Final Escherichia Coli - Esbl Complete 06/15/20 15:15 Blood Blood Culture - Preliminary NO GROWTH AFTER 24 HOURS Resulted 06/15/20 14:45 Blood Blood Culture - Preliminary NO GROWTH AFTER 24 HOURS Resulted Objective HEAD AND NECK: No JVD. LUNGS: Coarse rhonchi. CARDIOVASCULAR: Regular S1 and S2 with no gallop or murmur. ABDOMEN: Soft. EXTREMITIES: No pitting edema. Virgil Keating MD Jun 17, 2020 12:12
--- NOTE | 2020-06-17 12:44 | Cardiology Report ---
APPROVED REPORT EXAM: Two-dimensional and M-mode echocardiogram with Doppler and color Doppler. INDICATION Supraventric tachycardia M-Mode DIMENSIONS IVSd1.5 (0.7-1.1cm)Left Atrium (MM)5.0 (1.6-4.0cm) LVDd4.4 (3.5-5.6cm)Aortic Root2.9 (2.0-3.7cm) PWd0.9 (0.7-1.1cm)Aortic Cusp Exc.1.8 (1.5-2.0cm) IVSs1.9 cmEPSS0.7 (>1.0cm) LVDs2.2 (2.5-4.0cm) PWs1.0 cm <Conclusion> Normal left ventricular chamber size, systolic function and wall motion. Left ventricular ejection fraction estimated to be 60-65 %. Mild left ventricular hypertrophy by 2-D. Anterior Echo-free space, may be due to pericardial fat or effusion. Mild bi-atrial enlargement. Right ventricular chamber size is within normal limits. Calcification of aortic valve with adequate cusp excursion. Thickened mitral valve leaflets with normal excursion. Mitral annulus and aortic root calcification. Pulmonic valve not well visualized. Normal tricuspid valve structure. IVC at normal size with physiologic collapse. A color flow and spectral Doppler study was performed and revealed: Trace aortic regurgitation. Trace mitral regurgitation. Mitral inflow indicates normal left ventricular diastolic function. Trace tricuspid regurgitation. Tricuspid systolic velocities suggests peak right ventricular systolic pressure of 67 mmHg,consistent with severe pulmonary hypertension. Trace pulmonic regurgitation present.
--- NOTE | 2020-06-17 12:49 | CDS Physician Query ---
Clarification is required for compliance, coding accuracy, and to reflect severity of illness for this patient Dear Dr. Aristides Rivas Date: 06/17/2020 Child Specialist/CDS Name: Diane Martinez Clinical documentation states: Nephro consult note - 79-year-old male presents for fall At a facility...Acute renal failure Dehydration Possible underlying chronic kidney disease Fall, bradycardia Encephalopathy Anemia UTI Vitals/labs on admission: WBC 12.0, UA Nitrite and leukocyte esterase positive Temp 94.3, HR 40, RR 20 Treatment: IV piperacillin - tazobactam Please indicate the nature and chronicity of the condition below: [] Metabolic Encephalopathy [] Toxic Encephalopathy [] Septic encephalopathy due to sepsis [] Dementia with Delirium [] Encephalopathy due to UTI [] Encephalopathy, Other [] Other: [] Not Applicable Present on Admission: [] Yes [] No [] Clinically Undetermined Physician signature Date Please also document in your Progress Notes and/or Discharge Summary and indicate if the condition was present on admission. MTDD
[2020-06-17 16:00] VITALS: BP 121/53
[2020-06-17 20:00] VITALS: BP 110/66
[2020-06-17] MEDS: Epoetin Alfa-EPBX (NON ESRD) 3000 units/ml vial SUBQ SCH (20:35)
[2020-06-17] MEDS: Epoetin Alfa-EPBX (NON ESRD) 2000 units/ml vial SUBQ SCH (20:35)
--- NOTE | 2020-06-17 21:08 | General Progress Note ---
Subjective ROS Limited/Unobtainable: Yes Allergies: Coded Allergies: CODEINE (Verified Allergy, Unknown, 02/21/20) [id number] REDUCTASE INHIBITOR (Verified Allergy, Unknown, 02/21/20) Objective Last 24 Hour Vital Signs Date Time Temp Pulse Resp B/P (MAP) Pulse Ox O2 Delivery O2 Flow Rate FiO2 06/17/20 16:00 51 06/17/20 16:00 98.7 53 19 121/53 (75) 97 06/17/20 12:00 53 06/17/20 12:00 97.6 80 18 119/65 (83) 96 06/17/20 09:00 Room Air 06/17/20 08:00 59 06/17/20 08:00 98.1 60 22 115/54 (74) 98 06/17/20 04:00 97.7 51 18 106/47 (66) 94 06/17/20 04:00 56 06/17/20 00:00 98.1 65 17 115/50 (71) 96 06/17/20 00:00 56 Intake and Output 06/16/20 06/17/20 19:00 07:00 Intake Total 1075 ml 900 ml Output Total 630 ml Balance 1075 ml 270 ml Intake Oral 1000 ml IV Total 75 ml 900 ml Output Urine Total 630 ml # Voids 4 Laboratory Tests 06/17/20 05:56: White Blood Count 15.6H, Red Blood Count 2.84L, Hemoglobin 8.8L, Hematocrit 26.5L, Mean Corpuscular Volume 93, Mean Corpuscular Hemoglobin 31.0, Mean Corpuscular Hemoglobin Concent 33.1, Red Cell Distribution Width 13.9, Platelet Count 184, Mean Platelet Volume 7.7, Neutrophils (%) (Auto) , Lymphocytes (%) (Auto) , Monocytes (%) (Auto) , Eosinophils (%) (Auto) , Basophils (%) (Auto) , Differential Total Cells Counted 100, Neutrophils % (Manual) 89H, Lymphocytes % (Manual) 4L, Monocytes % (Manual) 5, Eosinophils % (Manual) 2, Basophils % (Manual) 0, Band Neutrophils 0, Platelet Estimate Adequate, Platelet Morphology Normal, Hypochromasia 1+, Sodium Level 140, Potassium Level 3.4L, Chloride Level 107, Carbon Dioxide Level 23, Anion Gap 10, Blood Urea Nitrogen 51H, Creatinine 2.1H, Estimat Glomerular Filtration Rate 30.8, Glucose Level 97, Uric Acid 7.5H, Calcium Level 7.7L, Phosphorus Level 2.9, Magnesium Level 2.3, Total Bilirubin 0.4, Aspartate Amino Transf (AST/SGOT) 58H, Alanine Aminotransferase (ALT/SGPT) 47, Alkaline Phosphatase 103, Total Creatine Kinase 254, Troponin I 0.091H, C- Reactive Protein, Quantitative 17.4H, Pro-B-Type Natriuretic Peptide [id number], Total Protein 6.0L, Albumin 2.3L, Globulin 3.7, Albumin/Globulin Ratio 0.6L, Triglycerides Level 60, Cholesterol Level 102, LDL Cholesterol 38, HDL Cholesterol 49, Cholesterol/HDL Ratio 2.1L, Thyroid Stimulating Hormone (TSH) 0.662, Free Thyroxine 1.24 Height (Feet): 5 Height (Inches): 8.00 Weight (Pounds): 187 Assessment/Plan Problem List: (1) Altered mental status ICD Codes: R41.82 - Altered mental status, unspecified SNOMED: 670017072 (2) Fall ICD Codes: W19.XXXA - Unspecified fall, initial encounter SNOMED: 8961037, 472849328 (3) Bradycardia ICD Codes: R00.1 - Bradycardia, unspecified SNOMED: 20373109 (4) DAVEY (acute kidney injury) ICD Codes: N17.9 - Acute kidney failure, unspecified SNOMED: 4170835, 07307978 (5) UTI (urinary tract infection) ICD Codes: N39.0 - Urinary tract infection, site not specified SNOMED: 51928919 Status: progressing Assessment/Plan: afebrile uti.abx per id bradycardia resolved obs reviewed chart and labs Carly Chilel MD Jun 17, 2020 21:08
[2020-06-18] VITALS: BP 107/53
[2020-06-18] MEDS: Piperacillin/Tazobactam 3.375 GM in NS 110 ML IVPB SCH ×3 (00:58→17:24)
[2020-06-18 04:00] VITALS: BP 127/50
[2020-06-18 07:12] LABS: BASOPHILS % (AUTO) 0.6 % (0.0-2.0); EOSINOPHILS % (AUTO) 2.6 % (0.0-3.0); HEMATOCRIT 23.7 % (42.0-52.0); HEMOGLOBIN 8.2 G/DL (14.2-18.0); LYMPHOCYTES % (AUTO) 9.2 % (20.0-45.0); MEAN CORPUSCULAR VOLUME 88 FL (80-99); MONOCYTES % (AUTO) 11.7 % (1.0-10.0); NEUTROPHILS % (AUTO) 75.9 % (45.0-75.0); PLATELET COUNT 182 K/UL (150-450); RED BLOOD COUNT 2.68 M/UL (4.70-6.10); RED CELL DISTRIBUTION WIDTH 14.9 % (11.6-14.8); WHITE BLOOD COUNT 9.9 K/UL (4.8-10.8)
[2020-06-18 07:36] LABS: ALBUMIN 2.3 G/DL (3.4-5.0); ALBUMIN/GLOBULIN RATIO 0.6 (1.0-2.7); ALKALINE PHOSPHATASE 137 U/L (46-116); BLOOD UREA NITROGEN 45 mg/dL (7-18); CALCIUM 7.9 MG/DL (8.5-10.1); CARBON DIOXIDE 23 MMOL/L (21-32); CHLORIDE 107 MMOL/L (98-107); PHOSPHORUS 2.8 MG/DL (2.5-4.9); POTASSIUM 3.8 MMOL/L (3.5-5.1); SODIUM 139 MMOL/L (136-145)
[2020-06-18 08:00] VITALS: BP 140/67
[2020-06-18 08:14] LABS: ALANINE AMINOTRANSFERASE 70 U/L (12-78); ASPARTATE AMINO TRANSFERASE 65 U/L (15-37); BILIRUBIN,TOTAL 0.4 MG/DL (0.2-1.0)
[2020-06-18] MEDS: Docusate 100mg cap ORAL SCH ×3 (10:03→17:30)
[2020-06-18] MEDS: D5 1/2NS 1,000 ML IV SCH (10:03)
[2020-06-18] MEDS: Aspirin EC 81mg tab ORAL SCH (10:03)
--- NOTE | 2020-06-18 10:05 | Cardiac Electrophysiology PN ---
Assessment/Plan Assessment/Plan 1. Status post fall. First troponin is negative. Second troponin is mildly elevated that could be due to renal failure. It could be due to dehydration. Also had bradycardia with heart rate down to 40s. We will watch the patient on telemetry, on IV fluids. Echo EF 65% If yin persists may need pacer. 2. History of atrial fibrillation, currently on aspirin and off beta-zarina and may be that is because of patient's syncope and sick sinus syndrome and patient's paroxysmal atrial fibrillation. Also bradycardic in 50s. S/P DCCV in the past 3. Renal failure, creatinine of 2. Fu by Dr. Rivas. 4. High WBC 27K on iv Abx DW RN Subjective Subjective HR high 50s. In Seizure precaution. Hx of DCCV and arrest in the past. WBC still high. Confused with RN at bedside Objective Last 24 Hour Vital Signs Date Time Temp Pulse Resp B/P (MAP) Pulse Ox O2 Delivery O2 Flow Rate FiO2 06/18/20 08:00 96.7 71 20 140/67 (91) 98 06/18/20 04:00 97.5 65 20 127/50 (75) 98 06/18/20 04:00 64 06/18/20 00:00 98.7 55 20 107/53 (71) 94 06/18/20 00:00 49 06/17/20 21:00 Room Air 06/17/20 20:00 52 06/17/20 20:00 99.5 52 20 110/66 (81) 96 06/17/20 16:00 51 06/17/20 16:00 98.7 53 19 121/53 (75) 97 06/17/20 12:00 53 06/17/20 12:00 97.6 80 18 119/65 (83) 96 Intake and Output 06/17/20 06/18/20 19:00 07:00 Intake Total 1000 ml 1070 ml Balance 1000 ml 1070 ml Intake Oral 950 ml 720 ml IV Total 50 ml 350 ml # Voids 3 5 # Bowel Movements 2 Laboratory Tests Test 06/18/20 05:13 White Blood Count 9.9 K/UL (4.8-10.8) Red Blood Count 2.68 M/UL (4.70-6.10) L Hemoglobin 8.2 G/DL (14.2-18.0) L Hematocrit 23.7 % (42.0-52.0) L Mean Corpuscular Volume 88 FL (80-99) Mean Corpuscular Hemoglobin 30.4 PG (27.0-31.0) Mean Corpuscular Hemoglobin Concent 34.5 G/DL (32.0-36.0) Red Cell Distribution Width 14.9 % (11.6-14.8) H Platelet Count 182 K/UL (150-450) Mean Platelet Volume 8.3 FL (6.5-10.1) Neutrophils (%) (Auto) 75.9 % (45.0-75.0) H Lymphocytes (%) (Auto) 9.2 % (20.0-45.0) L Monocytes (%) (Auto) 11.7 % (1.0-10.0) H Eosinophils (%) (Auto) 2.6 % (0.0-3.0) Basophils (%) (Auto) 0.6 % (0.0-2.0) Sodium Level 139 MMOL/L (136-145) Potassium Level 3.8 MMOL/L (3.5-5.1) Chloride Level 107 MMOL/L (98-107) Carbon Dioxide Level 23 MMOL/L (21-32) Blood Urea Nitrogen 45 mg/dL (7-18) H Creatinine 2.0 MG/DL (0.55-1.30) H Estimat Glomerular Filtration Rate 32.6 mL/min (>60) Glucose Level 125 MG/DL (74-106) H Calcium Level 7.9 MG/DL (8.5-10.1) L Phosphorus Level 2.8 MG/DL (2.5-4.9) Magnesium Level 2.2 MG/DL (1.8-2.4) Total Bilirubin 0.4 MG/DL (0.2-1.0) Aspartate Amino Transf (AST/SGOT) 65 U/L (15-37) H Alanine Aminotransferase (ALT/SGPT) 70 U/L (12-78) Alkaline Phosphatase 137 U/L (46-116) H C-Reactive Protein, Quantitative 9.4 mg/dL (0.00-0.90) H Pro-B-Type Natriuretic Peptide 5706 pg/mL (0-125) H Total Protein 6.0 G/DL (6.4-8.2) L Albumin 2.3 G/DL (3.4-5.0) L Globulin 3.7 g/dL Albumin/Globulin Ratio 0.6 (1.0-2.7) L Microbiology Date/Time Source Procedure Growth Status 06/15/20 17:50 Rectum - Final NO CARBAPENEM-RESISTANT ENTEROBACTERI... Complete 06/15/20 17:50 Nasal Nares MRSA Culture - Final Staphylococcus Aureus - Mrsa Complete 06/15/20 15:15 Urine,Clean Catch Urine Culture - Final Escherichia Coli - Esbl Complete 06/15/20 15:15 Blood Blood Culture - Preliminary NO GROWTH AFTER 48 HOURS Resulted 06/15/20 14:45 Blood Blood Culture - Preliminary NO GROWTH AFTER 48 HOURS Resulted Objective HEAD AND NECK: No JVD. LUNGS: Coarse rhonchi. CARDIOVASCULAR: Regular S1 and S2 with no gallop or murmur. ABDOMEN: Soft. EXTREMITIES: No pitting edema. Virgil Keating MD Jun 18, 2020 10:05
--- NOTE | 2020-06-18 11:01 | Nephrology Progress Note ---
Assessment/Plan Problem List: (1) DAVEY (acute kidney injury) (2) Dehydration (3) Altered mental status (4) Fall (5) Bradycardia (6) Anemia (7) UTI (urinary tract infection) Assessment Acute renal failure Dehydration Possible underlying chronic kidney disease Fall, bradycardia Encephalopathy Anemia UTI Psychiatric disease Plan June 18: Status quo. Serum creatinine unchanged. Electrolytes acceptable. Continue as is. June 17: Labs reviewed. Serum creatinine stable. Continue current management. Blood pressure stable. June 16: Magnesium and potassium supplement. Folic acid p.o. supplement. Continue slow hydration. Monitor renal parameters. Antibiotics for UTI. Subjective ROS Limited/Unobtainable: No Constitutional: Reports: malaise Objective Objective Last 24 Hour Vital Signs Date Time Temp Pulse Resp B/P (MAP) Pulse Ox O2 Delivery O2 Flow Rate FiO2 06/18/20 08:00 96.7 71 20 140/67 (91) 98 06/18/20 04:00 97.5 65 20 127/50 (75) 98 06/18/20 04:00 64 06/18/20 00:00 98.7 55 20 107/53 (71) 94 06/18/20 00:00 49 06/17/20 21:00 Room Air 06/17/20 20:00 52 06/17/20 20:00 99.5 52 20 110/66 (81) 96 06/17/20 16:00 51 06/17/20 16:00 98.7 53 19 121/53 (75) 97 06/17/20 12:00 53 06/17/20 12:00 97.6 80 18 119/65 (83) 96 Intake and Output 06/17/20 06/18/20 19:00 07:00 Intake Total 1000 ml 1070 ml Balance 1000 ml 1070 ml Intake Oral 950 ml 720 ml IV Total 50 ml 350 ml # Voids 3 5 # Bowel Movements 2 Current Medications Medications (Trade) Dose Ordered Sig/Capo Route PRN Reason Start Time Stop Time Status Last Admin Dose Admin Acetaminophen (Tylenol) 500 mg Q4H PRN ORAL pain 06/15/20 20:00 07/15/20 19:59 Aspirin (Ecotrin) 81 mg DAILY ORAL 06/16/20 09:00 07/31/20 08:59 06/18/20 10:03 Dextrose/Sodium Chloride 1,000 ml @ 50 mls/hr Q20H IV 06/15/20 19:45 07/15/20 19:44 06/18/20 10:03 Docusate Sodium (Colace) 100 mg TID ORAL 06/16/20 09:00 07/16/20 08:59 06/18/20 10:03 Epoetin Catracho (Epoetin Catracho-EPBX(NON ESRD)) 2,000 unit SUBQ 06/17/20 21:00 09/15/20 20:59 06/17/20 20:35 Epoetin Catracho (Epoetin Catracho-EPBX(NON ESRD)) 3,000 unit SUBQ 06/17/20 21:00 09/15/20 20:59 06/17/20 20:35 Folic Acid (Folate) 1 mg DAILY ORAL 06/16/20 11:30 07/16/20 11:29 06/18/20 10:03 Pantoprazole (Protonix) 40 mg BID ORAL 06/16/20 09:00 07/16/20 08:59 06/18/20 10:03 Piperacillin Sod/ Tazobactam Sod 3.375 gm/Sodium Chloride 110 ml @ 27.5 mls/hr Q8H IVPB 06/16/20 17:00 06/23/20 16:59 06/18/20 10:06 Laboratory Tests 06/18/20 05:13: White Blood Count 9.9, Red Blood Count 2.68L, Hemoglobin 8.2L, Hematocrit 23.7L, Mean Corpuscular Volume 88, Mean Corpuscular Hemoglobin 30.4, Mean Corpuscular Hemoglobin Concent 34.5, Red Cell Distribution Width 14.9H, Platelet Count 182, Mean Platelet Volume 8.3, Neutrophils (%) (Auto) 75.9H, Lymphocytes (%) (Auto) 9.2L, Monocytes (%) (Auto) 11.7H, Eosinophils (%) (Auto) 2.6, Basophils (%) (Auto) 0.6, Sodium Level 139, Potassium Level 3.8, Chloride Level 107, Carbon Dioxide Level 23, Blood Urea Nitrogen 45H, Creatinine 2.0H, Estimat Glomerular Filtration Rate 32.6, Glucose Level 125H, Calcium Level 7.9L, Phosphorus Level 2.8, Magnesium Level 2.2, Total Bilirubin 0.4, Aspartate Amino Transf (AST/SGOT) 65H, Alanine Aminotransferase (ALT/SGPT) 70, Alkaline Phosphatase 137H, C- Reactive Protein, Quantitative 9.4H, Pro-B-Type Natriuretic Peptide 5706H, Total Protein 6.0L, Albumin 2.3L, Globulin 3.7, Albumin/Globulin Ratio 0.6L Height (Feet): 5 Height (Inches): 8.00 Weight (Pounds): 187 General Appearance: no apparent distress Cardiovascular: bradycardia, other - Variable rate Respiratory/Chest: decreased breath sounds Abdomen: soft Aristides Rivas MD Jun 18, 2020 11:01
[2020-06-18 12:00] VITALS: BP 141/76
--- NOTE | 2020-06-18 13:19 | Infectious Diseases Prog Note ---
Assessment/Plan Assessment/Plan IMPRESSION: E coli UTI, Leukocytosis, resolved Bradycardia Hypothermia, resolved Altered mental Old CVA Pulmonary hypertension, Acute renal failure, chronic kidney disease Anemia, Diverticulosis. MRSA carrier RECOMMENDATION: Continue Zosyn. Subjective ROS Limited/Unobtainable: Yes Respiratory: Reports: dry cough Gastrointestinal/Abdominal: Reports: no symptoms Allergies: Coded Allergies: CODEINE (Verified Allergy, Unknown, 02/21/20) [id number] REDUCTASE INHIBITOR (Verified Allergy, Unknown, 02/21/20) Objective Last 24 Hour Vital Signs Date Time Temp Pulse Resp B/P (MAP) Pulse Ox O2 Delivery O2 Flow Rate FiO2 06/18/20 12:00 98.1 87 19 141/76 (97) 98 06/18/20 09:00 Room Air 06/18/20 08:00 96.7 71 20 140/67 (91) 98 06/18/20 08:00 57 06/18/20 04:00 97.5 65 20 127/50 (75) 98 06/18/20 04:00 64 06/18/20 00:00 98.7 55 20 107/53 (71) 94 06/18/20 00:00 49 06/17/20 21:00 Room Air 06/17/20 20:00 52 06/17/20 20:00 99.5 52 20 110/66 (81) 96 06/17/20 16:00 51 06/17/20 16:00 98.7 53 19 121/53 (75) 97 Height (Feet): 5 Height (Inches): 8.00 Weight (Pounds): 187 HEENT: mucous membranes moist Respiratory/Chest: lungs clear Cardiovascular: normal rate Abdomen: soft, non tender Extremities: no edema Neurologic/Psychiatric: alert, responsive Microbiology Date/Time Source Procedure Growth Status 06/15/20 17:50 Rectum - Final NO CARBAPENEM-RESISTANT ENTEROBACTERI... Complete 06/15/20 17:50 Rectum VRE Culture - Final Enterococcus Faecalis - Vre Complete 06/15/20 17:50 Nasal Nares MRSA Culture - Final Staphylococcus Aureus - Mrsa Complete 06/15/20 15:15 Urine,Clean Catch Urine Culture - Final Escherichia Coli - Esbl Complete 06/15/20 15:15 Blood Blood Culture - Preliminary NO GROWTH AFTER 48 HOURS Resulted 06/15/20 14:45 Blood Blood Culture - Preliminary NO GROWTH AFTER 48 HOURS Resulted Laboratory Tests Test 06/18/20 05:13 White Blood Count 9.9 K/UL (4.8-10.8) Red Blood Count 2.68 M/UL (4.70-6.10) L Hemoglobin 8.2 G/DL (14.2-18.0) L Hematocrit 23.7 % (42.0-52.0) L Mean Corpuscular Volume 88 FL (80-99) Mean Corpuscular Hemoglobin 30.4 PG (27.0-31.0) Mean Corpuscular Hemoglobin Concent 34.5 G/DL (32.0-36.0) Red Cell Distribution Width 14.9 % (11.6-14.8) H Platelet Count 182 K/UL (150-450) Mean Platelet Volume 8.3 FL (6.5-10.1) Neutrophils (%) (Auto) 75.9 % (45.0-75.0) H Lymphocytes (%) (Auto) 9.2 % (20.0-45.0) L Monocytes (%) (Auto) 11.7 % (1.0-10.0) H Eosinophils (%) (Auto) 2.6 % (0.0-3.0) Basophils (%) (Auto) 0.6 % (0.0-2.0) Sodium Level 139 MMOL/L (136-145) Potassium Level 3.8 MMOL/L (3.5-5.1) Chloride Level 107 MMOL/L (98-107) Carbon Dioxide Level 23 MMOL/L (21-32) Blood Urea Nitrogen 45 mg/dL (7-18) H Creatinine 2.0 MG/DL (0.55-1.30) H Estimat Glomerular Filtration Rate 32.6 mL/min (>60) Glucose Level 125 MG/DL (74-106) H Calcium Level 7.9 MG/DL (8.5-10.1) L Phosphorus Level 2.8 MG/DL (2.5-4.9) Magnesium Level 2.2 MG/DL (1.8-2.4) Total Bilirubin 0.4 MG/DL (0.2-1.0) Aspartate Amino Transf (AST/SGOT) 65 U/L (15-37) H Alanine Aminotransferase (ALT/SGPT) 70 U/L (12-78) Alkaline Phosphatase 137 U/L (46-116) H C-Reactive Protein, Quantitative 9.4 mg/dL (0.00-0.90) H Pro-B-Type Natriuretic Peptide 5706 pg/mL (0-125) H Total Protein 6.0 G/DL (6.4-8.2) L Albumin 2.3 G/DL (3.4-5.0) L Globulin 3.7 g/dL Albumin/Globulin Ratio 0.6 (1.0-2.7) L Current Medications Medications (Trade) Dose Ordered Sig/Capo Route PRN Reason Start Time Stop Time Status Last Admin Dose Admin Acetaminophen (Tylenol) 500 mg Q4H PRN ORAL pain 06/15/20 20:00 07/15/20 19:59 Aspirin (Ecotrin) 81 mg DAILY ORAL 06/16/20 09:00 07/31/20 08:59 06/18/20 10:03 Dextrose/Sodium Chloride 1,000 ml @ 50 mls/hr Q20H IV 06/15/20 19:45 07/15/20 19:44 06/18/20 10:03 Docusate Sodium (Colace) 100 mg TID ORAL 06/16/20 09:00 07/16/20 08:59 06/18/20 10:03 Epoetin Catracho (Epoetin Catracho-EPBX(NON ESRD)) 2,000 unit SUBQ 06/17/20 21:00 09/15/20 20:59 06/17/20 20:35 Epoetin Catracho (Epoetin Catracho-EPBX(NON ESRD)) 3,000 unit SUBQ 06/17/20 21:00 09/15/20 20:59 06/17/20 20:35 Folic Acid (Folate) 1 mg DAILY ORAL 06/16/20 11:30 07/16/20 11:29 06/18/20 10:03 Pantoprazole (Protonix) 40 mg BID ORAL 06/16/20 09:00 07/16/20 08:59 06/18/20 10:03 Piperacillin Sod/ Tazobactam Sod 3.375 gm/Sodium Chloride 110 ml @ 27.5 mls/hr Q8H IVPB 06/16/20 17:00 06/23/20 16:59 06/18/20 10:06 Edward Ruvalcaba MD Jun 18, 2020 13:18
[2020-06-18 16:00] VITALS: BP 148/67
[2020-06-18 20:00] VITALS: BP 129/56
--- NOTE | 2020-06-18 21:36 | General Progress Note ---
Subjective ROS Limited/Unobtainable: Yes Allergies: Coded Allergies: CODEINE (Verified Allergy, Unknown, 02/21/20) [id number] REDUCTASE INHIBITOR (Verified Allergy, Unknown, 02/21/20) Objective Last 24 Hour Vital Signs Date Time Temp Pulse Resp B/P (MAP) Pulse Ox O2 Delivery O2 Flow Rate FiO2 06/18/20 16:00 97.5 65 20 148/67 (94) 98 06/18/20 16:00 62 06/18/20 12:00 44 06/18/20 12:00 98.1 87 19 141/76 (97) 98 06/18/20 09:00 Room Air 06/18/20 08:00 96.7 71 20 140/67 (91) 98 06/18/20 08:00 57 06/18/20 04:00 97.5 65 20 127/50 (75) 98 06/18/20 04:00 64 06/18/20 00:00 98.7 55 20 107/53 (71) 94 06/18/20 00:00 49 Intake and Output 06/17/20 06/18/20 19:00 07:00 Intake Total 1000 ml 1070 ml Balance 1000 ml 1070 ml Intake Oral 950 ml 720 ml IV Total 50 ml 350 ml # Voids 3 5 # Bowel Movements 2 Laboratory Tests 06/18/20 05:13: White Blood Count 9.9, Red Blood Count 2.68L, Hemoglobin 8.2L, Hematocrit 23.7L, Mean Corpuscular Volume 88, Mean Corpuscular Hemoglobin 30.4, Mean Corpuscular Hemoglobin Concent 34.5, Red Cell Distribution Width 14.9H, Platelet Count 182, Mean Platelet Volume 8.3, Neutrophils (%) (Auto) 75.9H, Lymphocytes (%) (Auto) 9.2L, Monocytes (%) (Auto) 11.7H, Eosinophils (%) (Auto) 2.6, Basophils (%) (Auto) 0.6, Sodium Level 139, Potassium Level 3.8, Chloride Level 107, Carbon Dioxide Level 23, Blood Urea Nitrogen 45H, Creatinine 2.0H, Estimat Glomerular Filtration Rate 32.6, Glucose Level 125H, Calcium Level 7.9L, Phosphorus Level 2.8, Magnesium Level 2.2, Total Bilirubin 0.4, Aspartate Amino Transf (AST/SGOT) 65H, Alanine Aminotransferase (ALT/SGPT) 70, Alkaline Phosphatase 137H, C- Reactive Protein, Quantitative 9.4H, Pro-B-Type Natriuretic Peptide 5706H, Total Protein 6.0L, Albumin 2.3L, Globulin 3.7, Albumin/Globulin Ratio 0.6L Height (Feet): 5 Height (Inches): 8.00 Weight (Pounds): 187 Assessment/Plan Problem List: (1) Altered mental status ICD Codes: R41.82 - Altered mental status, unspecified SNOMED: 708491882 (2) Fall ICD Codes: W19.XXXA - Unspecified fall, initial encounter SNOMED: 3472799, 190084935 (3) Bradycardia ICD Codes: R00.1 - Bradycardia, unspecified SNOMED: 65992668 (4) DAVEY (acute kidney injury) ICD Codes: N17.9 - Acute kidney failure, unspecified SNOMED: 8337503, 93320522 (5) UTI (urinary tract infection) ICD Codes: N39.0 - Urinary tract infection, site not specified SNOMED: 02441424 Status: progressing Assessment/Plan: vitals stable no acute events no sob uti.abx per id Carly Chilel MD Jun 18, 2020 21:36
[2020-06-19] VITALS: BP 145/66
[2020-06-19] MEDS: Piperacillin/Tazobactam 3.375 GM in NS 110 ML IVPB SCH ×3 (00:07→17:20)
[2020-06-19 04:00] VITALS: BP 141/61
[2020-06-19] MEDS: D5 1/2NS 1,000 ML IV SCH (04:27)
[2020-06-19 08:00] VITALS: BP 142/61
--- NOTE | 2020-06-19 09:56 | Nephrology Progress Note ---
Assessment/Plan Problem List: (1) DAVEY (acute kidney injury) (2) Dehydration (3) Altered mental status (4) Fall (5) Bradycardia (6) Anemia (7) UTI (urinary tract infection) Assessment Acute renal failure Dehydration Possible underlying chronic kidney disease Fall, bradycardia Encephalopathy Anemia UTI Psychiatric disease Plan June 19: No labs drawn today. Most recent renal parameter stable with serum creatinine of 2. Medication list reviewed. Stable from renal standpoint of view. Will repeat labs for tomorrow. Continue per consultants. June 18: Status quo. Serum creatinine unchanged. Electrolytes acceptable. Continue as is. June 17: Labs reviewed. Serum creatinine stable. Continue current management. Blood pressure stable. June 16: Magnesium and potassium supplement. Folic acid p.o. supplement. Continue slow hydration. Monitor renal parameters. Antibiotics for UTI. Subjective ROS Limited/Unobtainable: No Constitutional: Reports: malaise, weakness Objective Objective Last 24 Hour Vital Signs Date Time Temp Pulse Resp B/P (MAP) Pulse Ox O2 Delivery O2 Flow Rate FiO2 06/19/20 04:00 52 06/19/20 04:00 98.7 52 20 141/61 (87) 97 06/19/20 00:00 47 06/19/20 00:00 97.7 58 18 145/66 (92) 95 06/18/20 21:00 Room Air 06/18/20 20:00 99.0 51 20 129/56 (80) 97 06/18/20 20:00 53 06/18/20 16:00 97.5 65 20 148/67 (94) 98 06/18/20 16:00 62 06/18/20 12:00 44 06/18/20 12:00 98.1 87 19 141/76 (97) 98 Intake and Output 06/18/20 06/19/20 19:00 07:00 Intake Total 720 ml Balance 720 ml Intake Oral 720 ml # Voids 4 # Bowel Movements 3 2 Current Medications Medications (Trade) Dose Ordered Sig/Capo Route PRN Reason Start Time Stop Time Status Last Admin Dose Admin Acetaminophen (Tylenol) 500 mg Q4H PRN ORAL pain 06/15/20 20:00 07/15/20 19:59 Aspirin (Ecotrin) 81 mg DAILY ORAL 06/16/20 09:00 07/31/20 08:59 06/18/20 10:03 Dextrose/Sodium Chloride 1,000 ml @ 50 mls/hr Q20H IV 06/15/20 19:45 07/15/20 19:44 06/19/20 04:27 Docusate Sodium (Colace) 100 mg TID ORAL 06/16/20 09:00 07/16/20 08:59 06/18/20 10:03 Epoetin Catracho (Epoetin Catracho-EPBX(NON ESRD)) 2,000 unit MON-MON-MON SUBQ 06/17/20 21:00 09/15/20 20:59 06/17/20 20:35 Epoetin Catracho (Epoetin Catracho-EPBX(NON ESRD)) 3,000 unit MON- SUBQ 06/17/20 21:00 09/15/20 20:59 06/17/20 20:35 Folic Acid (Folate) 1 mg DAILY ORAL 06/16/20 11:30 07/16/20 11:29 06/18/20 10:03 Pantoprazole (Protonix) 40 mg BID ORAL 06/16/20 09:00 07/16/20 08:59 06/18/20 17:24 Piperacillin Sod/ Tazobactam Sod 3.375 gm/Sodium Chloride 110 ml @ 27.5 mls/hr Q8H IVPB 06/16/20 17:00 06/23/20 16:59 06/19/20 00:07 Height (Feet): 5 Height (Inches): 8.00 Weight (Pounds): 187 General Appearance: no apparent distress Cardiovascular: normal rate Respiratory/Chest: decreased breath sounds Abdomen: soft, distended Aristides Rivas MD Jun 19, 2020 09:56
[2020-06-19] MEDS: Aspirin EC 81mg tab ORAL SCH (10:10)
[2020-06-19] MEDS: Docusate 100mg cap ORAL SCH ×3 (10:10→17:20)
--- NOTE | 2020-06-19 11:05 | Infectious Diseases Prog Note ---
Assessment/Plan Assessment/Plan antibiotics : zosyn A 1. e.coli UTI 2. pneumonia 3. CVA 4. pulmonary hypertension 5. renal failure P 1. continue zosyn 2. will follow up cultures Subjective Constitutional: Denies: fever, chills Respiratory: Reports: dry cough - decreased; Denies: shortness of breath Gastrointestinal/Abdominal: Denies: nausea, vomiting, diarrhea Musculoskeletal: Denies: pain Allergies: Coded Allergies: CODEINE (Verified Allergy, Unknown, 02/21/20) [id number] REDUCTASE INHIBITOR (Verified Allergy, Unknown, 02/21/20) Objective Last 24 Hour Vital Signs Date Time Temp Pulse Resp B/P (MAP) Pulse Ox O2 Delivery O2 Flow Rate FiO2 06/19/20 04:00 52 06/19/20 04:00 98.7 52 20 141/61 (87) 97 06/19/20 00:00 47 06/19/20 00:00 97.7 58 18 145/66 (92) 95 06/18/20 21:00 Room Air 06/18/20 20:00 99.0 51 20 129/56 (80) 97 06/18/20 20:00 53 06/18/20 16:00 97.5 65 20 148/67 (94) 98 06/18/20 16:00 62 06/18/20 12:00 44 06/18/20 12:00 98.1 87 19 141/76 (97) 98 Height (Feet): 5 Height (Inches): 8.00 Weight (Pounds): 187 Respiratory/Chest: lungs clear Cardiovascular: normal rate, regular rhythm, no gallop/murmur Abdomen: soft, non tender Extremities: no edema Current Medications Medications (Trade) Dose Ordered Sig/Capo Route PRN Reason Start Time Stop Time Status Last Admin Dose Admin Acetaminophen (Tylenol) 500 mg Q4H PRN ORAL pain 06/15/20 20:00 07/15/20 19:59 Aspirin (Ecotrin) 81 mg DAILY ORAL 06/16/20 09:00 07/31/20 08:59 06/19/20 10:10 Dextrose/Sodium Chloride 1,000 ml @ 50 mls/hr Q20H IV 06/15/20 19:45 07/15/20 19:44 06/19/20 04:27 Docusate Sodium (Colace) 100 mg TID ORAL 06/16/20 09:00 07/16/20 08:59 06/19/20 10:10 Epoetin Catracho (Epoetin Catracho-EPBX(NON ESRD)) 2,000 unit SUBQ 06/17/20 21:00 09/15/20 20:59 06/17/20 20:35 Epoetin Catracho (Epoetin Catracho-EPBX(NON ESRD)) 3,000 unit SUBQ 06/17/20 21:00 09/15/20 20:59 06/17/20 20:35 Folic Acid (Folate) 1 mg DAILY ORAL 06/16/20 11:30 07/16/20 11:29 06/19/20 10:10 Pantoprazole (Protonix) 40 mg BID ORAL 06/16/20 09:00 07/16/20 08:59 06/19/20 10:10 Piperacillin Sod/ Tazobactam Sod 3.375 gm/Sodium Chloride 110 ml @ 27.5 mls/hr Q8H IVPB 06/16/20 17:00 06/23/20 16:59 06/19/20 10:13 Jack Keene MD Jun 19, 2020 11:05
--- NOTE | 2020-06-19 11:21 | Cardiac Electrophysiology PN ---
Assessment/Plan Assessment/Plan 1. Status post fall. First troponin is negative. Second troponin is mildly elevated that could be due to renal failure. It could be due to dehydration. Also had bradycardia with heart rate down to 40s. Watch the patient on telemetry, on IV fluids. Echo EF 65% If yin persists may need pacer. 2. History of atrial fibrillation, currently on aspirin and off beta-zarina and may be that is because of patient's syncope and sick sinus syndrome and patient's paroxysmal atrial fibrillation. Also bradycardic in 50s. S/P DCCV in the past 3. Renal failure, creatinine of 2. Fu by Dr. Rivas. 4. High WBC 27K on iv Abx. Improved to 9K DW RN Subjective Subjective HR high 40s. In Seizure precaution. Hx of DCCV and arrest in the past. WBC decreased from 27 to 9. Confused with RN at bedside Objective Last 24 Hour Vital Signs Date Time Temp Pulse Resp B/P (MAP) Pulse Ox O2 Delivery O2 Flow Rate FiO2 06/19/20 08:00 60 06/19/20 08:00 98.8 61 20 142/61 (88) 97 06/19/20 04:00 52 06/19/20 04:00 98.7 52 20 141/61 (87) 97 06/19/20 00:00 47 06/19/20 00:00 97.7 58 18 145/66 (92) 95 06/18/20 21:00 Room Air 06/18/20 20:00 99.0 51 20 129/56 (80) 97 06/18/20 20:00 53 06/18/20 16:00 97.5 65 20 148/67 (94) 98 06/18/20 16:00 62 06/18/20 12:00 44 06/18/20 12:00 98.1 87 19 141/76 (97) 98 Intake and Output 06/18/20 06/19/20 19:00 07:00 Intake Total 720 ml Balance 720 ml Intake Oral 720 ml # Voids 4 # Bowel Movements 3 2 Objective HEAD AND NECK: No JVD. LUNGS: Coarse rhonchi. CARDIOVASCULAR: Regular S1 and S2 with no gallop or murmur. ABDOMEN: Soft. EXTREMITIES: No pitting edema. Virgil Keating MD Jun 19, 2020 11:21
[2020-06-19 12:00] VITALS: BP 150/68
[2020-06-19 16:00] VITALS: BP 154/68
[2020-06-19 20:00] VITALS: BP 150/70
--- NOTE | 2020-06-19 20:11 | General Progress Note ---
Subjective ROS Limited/Unobtainable: Yes Allergies: Coded Allergies: CODEINE (Verified Allergy, Unknown, 02/21/20) [id number] REDUCTASE INHIBITOR (Verified Allergy, Unknown, 02/21/20) Objective Last 24 Hour Vital Signs Date Time Temp Pulse Resp B/P (MAP) Pulse Ox O2 Delivery O2 Flow Rate FiO2 06/19/20 16:00 97.9 53 19 154/68 (96) 06/19/20 16:00 59 06/19/20 12:00 97.5 107 21 150/68 (95) 97 06/19/20 12:00 71 06/19/20 09:00 Room Air 06/19/20 08:00 60 06/19/20 08:00 98.8 61 20 142/61 (88) 97 06/19/20 04:00 52 06/19/20 04:00 98.7 52 20 141/61 (87) 97 06/19/20 00:00 47 06/19/20 00:00 97.7 58 18 145/66 (92) 95 06/18/20 21:00 Room Air Intake and Output 06/18/20 06/19/20 19:00 07:00 Intake Total 770 ml Balance 770 ml Intake Oral 720 ml IV Total 50 ml # Voids 4 # Bowel Movements 3 2 Height (Feet): 5 Height (Inches): 8.00 Weight (Pounds): 187 Assessment/Plan Problem List: (1) Altered mental status ICD Codes: R41.82 - Altered mental status, unspecified SNOMED: 733821847 (2) Fall ICD Codes: W19.XXXA - Unspecified fall, initial encounter SNOMED: 2342657, 490596724 (3) Bradycardia ICD Codes: R00.1 - Bradycardia, unspecified SNOMED: 26258737 (4) DAVEY (acute kidney injury) ICD Codes: N17.9 - Acute kidney failure, unspecified SNOMED: 4385365, 32397779 (5) UTI (urinary tract infection) ICD Codes: N39.0 - Urinary tract infection, site not specified SNOMED: 06411890 Status: progressing Assessment/Plan: obs reviewed chart and labs clinically improving uti.abx per id Carly Chilel MD Jun 19, 2020 20:11
[2020-06-19] MEDS: Epoetin Alfa-EPBX (NON ESRD) 2000 units/ml vial SUBQ SCH (21:36)
[2020-06-19] MEDS: Epoetin Alfa-EPBX (NON ESRD) 3000 units/ml vial SUBQ SCH (21:36)
[2020-06-20] VITALS (7 sets, daily range): BP systolic 146–169; BP diastolic 56–74
[2020-06-20] MEDS: Piperacillin/Tazobactam 3.375 GM in NS 110 ML IVPB SCH ×3 (00:14→16:47)
[2020-06-20] MEDS: D5 1/2NS 1,000 ML IV SCH ×2 (01:09→20:52)
[2020-06-20 06:09] LABS: BASOPHILS % (AUTO) 0.7 % (0.0-2.0); EOSINOPHILS % (AUTO) 2.6 % (0.0-3.0); HEMATOCRIT 26.8 % (42.0-52.0); HEMOGLOBIN 9.3 G/DL (14.2-18.0); LYMPHOCYTES % (AUTO) 22.2 % (20.0-45.0); MEAN CORPUSCULAR VOLUME 87 FL (80-99); MONOCYTES % (AUTO) 9.9 % (1.0-10.0); NEUTROPHILS % (AUTO) 64.5 % (45.0-75.0); PLATELET COUNT 224 K/UL (150-450); RED BLOOD COUNT 3.07 M/UL (4.70-6.10); RED CELL DISTRIBUTION WIDTH 14.1 % (11.6-14.8); WHITE BLOOD COUNT 8.3 K/UL (4.8-10.8)
[2020-06-20 06:44] LABS: ALBUMIN 2.4 G/DL (3.4-5.0); ALBUMIN/GLOBULIN RATIO 0.6 (1.0-2.7); BILIRUBIN,TOTAL 0.6 MG/DL (0.2-1.0); CALCIUM 8.5 MG/DL (8.5-10.1); CREATININE 1.5 MG/DL (0.55-1.30); POTASSIUM 3.8 MMOL/L (3.5-5.1)
[2020-06-20] MEDS: Aspirin EC 81mg tab ORAL SCH (08:13)
[2020-06-20] MEDS: Docusate 100mg cap ORAL SCH ×3 (08:13→16:42)
--- NOTE | 2020-06-20 08:55 | General Progress Note ---
Subjective ROS Limited/Unobtainable: Yes Allergies: Coded Allergies: CODEINE (Verified Allergy, Unknown, 02/21/20) [id number] REDUCTASE INHIBITOR (Verified Allergy, Unknown, 02/21/20) Objective Last 24 Hour Vital Signs Date Time Temp Pulse Resp B/P (MAP) Pulse Ox O2 Delivery O2 Flow Rate FiO2 06/20/20 04:00 53 06/20/20 04:00 97.6 52 20 158/70 (99) 98 06/20/20 00:00 97.8 56 20 146/70 (95) 97 06/20/20 00:00 56 06/19/20 21:00 Room Air 06/19/20 20:00 97.8 56 20 150/70 (96) 97 06/19/20 16:00 97.9 53 19 154/68 (96) 06/19/20 16:00 59 06/19/20 12:00 97.5 107 21 150/68 (95) 97 06/19/20 12:00 71 06/19/20 09:00 Room Air Intake and Output 06/19/20 06/20/20 19:00 07:00 Intake Total 1350 ml 240 ml Balance 1350 ml 240 ml Intake Oral 750 ml 240 ml IV Total 600 ml # Voids 4 2 # Bowel Movements 4 1 Laboratory Tests 06/20/20 04:45: White Blood Count 8.3, Red Blood Count 3.07L, Hemoglobin 9.3L, Hematocrit 26.8L, Mean Corpuscular Volume 87, Mean Corpuscular Hemoglobin 30.4, Mean Corpuscular Hemoglobin Concent 34.8, Red Cell Distribution Width 14.1, Platelet Count 224, Mean Platelet Volume 8.1, Neutrophils (%) (Auto) 64.5, Lymphocytes (%) (Auto) 22.2, Monocytes (%) (Auto) 9.9, Eosinophils (%) (Auto) 2.6, Basophils (%) (Auto) 0.7, Sodium Level 141, Potassium Level 3.8, Chloride Level 109H, Carbon Dioxide Level 22, Anion Gap 10, Blood Urea Nitrogen 20H, Creatinine 1.5H, Estimat Glom erular Filtration Rate 45.4, Glucose Level 104, Calcium Level 8.5, Phosphorus Level 3.0, Magnesium Level 1.9, Total Bilirubin 0.6, Aspartate Amino Transf (AST/SGOT) 27, Alanine Aminotransferase (ALT/SGPT) 62, Alkaline Phosphatase 164H , Total Protein 6.5, Albumin 2.4L, Globulin 4.1, Albumin/Globulin Ratio 0.6L Height (Feet): 5 Height (Inches): 8.00 Weight (Pounds): 187 Assessment/Plan Problem List: (1) Altered mental status ICD Codes: R41.82 - Altered mental status, unspecified SNOMED: 148317972 (2) Fall ICD Codes: W19.XXXA - Unspecified fall, initial encounter SNOMED: 3207620, 815208146 (3) Bradycardia ICD Codes: R00.1 - Bradycardia, unspecified SNOMED: 65102988 (4) DAVEY (acute kidney injury) ICD Codes: N17.9 - Acute kidney failure, unspecified SNOMED: 1958157, 99266087 (5) UTI (urinary tract infection) ICD Codes: N39.0 - Urinary tract infection, site not specified SNOMED: 74879219 Status: progressing Assessment/Plan: leukocytosis improved azotemia improving afebrile uti.abx per Carly Christian MD Jun 20, 2020 08:55
--- NOTE | 2020-06-20 14:53 | Cardiac Electrophysiology PN ---
Assessment/Plan Assessment/Plan 1. Status post fall. First troponin is negative. Second troponin is mildly elevated that could be due to renal failure. It could be due to dehydration. Also had bradycardia with heart rate down to 30s. Watch the patient on telemetry, on IV fluids. Echo EF 65% May need pacer after sepsis is resolved 2. History of atrial fibrillation, currently on aspirin and off beta-zarina and may be that is because of patient's syncope and sick sinus syndrome and patient's paroxysmal atrial fibrillation. Also bradycardic in 40s. S/P DCCV in the past 3. Renal failure, creatinine of 2. Fu by Dr. Rivas. 4. High WBC 27K on iv Abx. Improved to 9K DW RN Subjective Subjective HR high 40s- low 50s. Was as low as 36. In Seizure precaution. Hx of DCCV and arrest in the past. WBC decreased from 27 to 9. RN at bedside Objective Last 24 Hour Vital Signs Date Time Temp Pulse Resp B/P (MAP) Pulse Ox O2 Delivery O2 Flow Rate FiO2 06/20/20 12:29 52 18 154/56 (88) 06/20/20 12:00 97.7 51 20 169/74 (105) 96 06/20/20 12:00 69 06/20/20 09:00 Room Air 06/20/20 08:00 97.6 63 20 151/58 (89) 95 06/20/20 08:00 70 06/20/20 04:00 53 06/20/20 04:00 97.6 52 20 158/70 (99) 98 06/20/20 00:00 97.8 56 20 146/70 (95) 97 06/20/20 00:00 56 06/19/20 21:00 Room Air 06/19/20 20:00 97.8 56 20 150/70 (96) 97 06/19/20 16:00 97.9 53 19 154/68 (96) 06/19/20 16:00 59 Intake and Output 06/19/20 06/20/20 19:00 07:00 Intake Total 1350 ml 240 ml Balance 1350 ml 240 ml Intake Oral 750 ml 240 ml IV Total 600 ml # Voids 4 2 # Bowel Movements 4 1 Laboratory Tests Test 06/20/20 04:45 White Blood Count 8.3 K/UL (4.8-10.8) Red Blood Count 3.07 M/UL (4.70-6.10) L Hemoglobin 9.3 G/DL (14.2-18.0) L Hematocrit 26.8 % (42.0-52.0) L Mean Corpuscular Volume 87 FL (80-99) Mean Corpuscular Hemoglobin 30.4 PG (27.0-31.0) Mean Corpuscular Hemoglobin Concent 34.8 G/DL (32.0-36.0) Red Cell Distribution Width 14.1 % (11.6-14.8) Platelet Count 224 K/UL (150-450) Mean Platelet Volume 8.1 FL (6.5-10.1) Neutrophils (%) (Auto) 64.5 % (45.0-75.0) Lymphocytes (%) (Auto) 22.2 % (20.0-45.0) Monocytes (%) (Auto) 9.9 % (1.0-10.0) Eosinophils (%) (Auto) 2.6 % (0.0-3.0) Basophils (%) (Auto) 0.7 % (0.0-2.0) Sodium Level 141 MMOL/L (136-145) Potassium Level 3.8 MMOL/L (3.5-5.1) Chloride Level 109 MMOL/L (98-107) H Carbon Dioxide Level 22 MMOL/L (21-32) Anion Gap 10 mmol/L (5-15) Blood Urea Nitrogen 20 mg/dL (7-18) H Creatinine 1.5 MG/DL (0.55-1.30) H Estimat Glomerular Filtration Rate 45.4 mL/min (>60) Glucose Level 104 MG/DL (74-106) Calcium Level 8.5 MG/DL (8.5-10.1) Phosphorus Level 3.0 MG/DL (2.5-4.9) Magnesium Level 1.9 MG/DL (1.8-2.4) Total Bilirubin 0.6 MG/DL (0.2-1.0) Aspartate Amino Transf (AST/SGOT) 27 U/L (15-37) Alanine Aminotransferase (ALT/SGPT) 62 U/L (12-78) Alkaline Phosphatase 164 U/L (46-116) H Total Protein 6.5 G/DL (6.4-8.2) Albumin 2.4 G/DL (3.4-5.0) L Globulin 4.1 g/dL Albumin/Globulin Ratio 0.6 (1.0-2.7) L Objective HEAD AND NECK: No JVD. LUNGS: Coarse rhonchi. CARDIOVASCULAR: Regular S1 and S2 with no gallop or murmur. ABDOMEN: Soft. EXTREMITIES: No pitting edema. Virgil Keating MD Jun 20, 2020 14:53
--- NOTE | 2020-06-20 15:28 | Nephrology Progress Note ---
Assessment/Plan Problem List: (1) DAVEY (acute kidney injury) (2) Dehydration (3) Altered mental status (4) Fall (5) Bradycardia (6) Anemia (7) UTI (urinary tract infection) Assessment Acute renal failure Dehydration Possible underlying chronic kidney disease Fall, bradycardia Encephalopathy Anemia UTI Psychiatric disease Plan June 20: Labs reviewed. Serum creatinine lower to 1.5. Medication list reviewed. Remains stable from renal standpoint of view. Continue per consultants. June 19: No labs drawn today. Most recent renal parameter stable with serum creatinine of 2. Medication list reviewed. Stable from renal standpoint of view. Will repeat labs for tomorrow. Continue per consultants. June 18: Status quo. Serum creatinine unchanged. Electrolytes acceptable. Continue as is. June 17: Labs reviewed. Serum creatinine stable. Continue current management. Blood pressure stable. June 16: Magnesium and potassium supplement. Folic acid p.o. supplement. Continue slow hydration. Monitor renal parameters. Antibiotics for UTI. Subjective ROS Limited/Unobtainable: No Constitutional: Reports: malaise, weakness Objective Objective Last 24 Hour Vital Signs Date Time Temp Pulse Resp B/P (MAP) Pulse Ox O2 Delivery O2 Flow Rate FiO2 06/20/20 12:29 52 18 154/56 (88) 06/20/20 12:00 97.7 51 20 169/74 (105) 96 06/20/20 12:00 69 06/20/20 09:00 Room Air 06/20/20 08:00 97.6 63 20 151/58 (89) 95 06/20/20 08:00 70 06/20/20 04:00 53 06/20/20 04:00 97.6 52 20 158/70 (99) 98 06/20/20 00:00 97.8 56 20 146/70 (95) 97 06/20/20 00:00 56 06/19/20 21:00 Room Air 06/19/20 20:00 97.8 56 20 150/70 (96) 97 06/19/20 16:00 97.9 53 19 154/68 (96) 06/19/20 16:00 59 Intake and Output 06/19/20 06/20/20 19:00 07:00 Intake Total 1350 ml 240 ml Balance 1350 ml 240 ml Intake Oral 750 ml 240 ml IV Total 600 ml # Voids 4 2 # Bowel Movements 4 1 Current Medications Medications (Trade) Dose Ordered Sig/Capo Route PRN Reason Start Time Stop Time Status Last Admin Dose Admin Acetaminophen (Tylenol) 500 mg Q4H PRN ORAL pain 06/15/20 20:00 07/15/20 19:59 Aspirin (Ecotrin) 81 mg DAILY ORAL 06/16/20 09:00 07/31/20 08:59 06/20/20 08:13 Dextrose/Sodium Chloride 1,000 ml @ 50 mls/hr Q20H IV 06/15/20 19:45 07/15/20 19:44 06/20/20 01:09 Docusate Sodium (Colace) 100 mg TID ORAL 06/16/20 09:00 07/16/20 08:59 06/19/20 10:10 Epoetin Cartacho (Epoetin Catracho-EPBX(NON ESRD)) 2,000 unit SUBQ 06/17/20 21:00 09/15/20 20:59 06/19/20 21:36 Epoetin Catracho (Epoetin Catracho-EPBX(NON ESRD)) 3,000 unit SUBQ 06/17/20 21:00 09/15/20 20:59 06/19/20 21:36 Folic Acid (Folate) 1 mg DAILY ORAL 06/16/20 11:30 07/16/20 11:29 06/20/20 08:13 Pantoprazole (Protonix) 40 mg BID ORAL 06/16/20 09:00 07/16/20 08:59 06/20/20 08:13 Piperacillin Sod/ Tazobactam Sod 3.375 gm/Sodium Chloride 110 ml @ 27.5 mls/hr Q8H IVPB 06/16/20 17:00 06/23/20 16:59 06/20/20 08:13 Laboratory Tests 06/20/20 04:45: White Blood Count 8.3, Red Blood Count 3.07L, Hemoglobin 9.3L, Hematocrit 26.8L, Mean Corpuscular Volume 87, Mean Corpuscular Hemoglobin 30.4, Mean Corpuscular Hemoglobin Concent 34.8, Red Cell Distribution Width 14.1, Platelet Count 224, Mean Platelet Volume 8.1, Neutrophils (%) (Auto) 64.5, Lymphocytes (%) (Auto) 22.2, Monocytes (%) (Auto) 9.9, Eosinophils (%) (Auto) 2.6, Basophils (%) (Auto) 0.7, Sodium Level 141, Potassium Level 3.8, Chloride Level 109H, Carbon Dioxide Level 22, Anion Gap 10, Blood Urea Nitrogen 20H, Creatinine 1.5H, Estimat Glomerular Filtration Rate 45.4, Glucose Level 104, Calcium Level 8.5, Ph osphorus Level 3.0, Magnesium Level 1.9, Total Bilirubin 0.6, Aspartate Amino Transf (AST/SGOT) 27, Alanine Aminotransferase (ALT/SGPT) 62, Alkaline Phosphatase 164H, Total Protein 6.5, Albumin 2.4L, Globulin 4.1, Albumin/Globulin Ratio 0.6L Height (Feet): 5 Height (Inches): 8.00 Weight (Pounds): 187 General Appearance: no apparent distress Cardiovascular: normal rate, tachycardia Respiratory/Chest: decreased breath sounds Abdomen: soft Aristides Rivas MD Jun 20, 2020 15:28
--- NOTE | 2020-06-20 17:20 | Infectious Diseases Prog Note ---
Assessment/Plan Assessment/Plan IMPRESSION: E coli UTI, Leukocytosis, resolved Bradycardia Hypothermia, resolved Altered mental Old CVA Pulmonary hypertension, Acute renal failure, chronic kidney disease Anemia, Diverticulosis. MRSA carrier RECOMMENDATION: Continue Zosyn. Subjective ROS Limited/Unobtainable: No Constitutional: Reports: no symptoms Respiratory: Reports: no symptoms Gastrointestinal/Abdominal: Reports: no symptoms Genitourinary: Reports: no symptoms Allergies: Coded Allergies: CODEINE (Verified Allergy, Unknown, 02/21/20) [id number] REDUCTASE INHIBITOR (Verified Allergy, Unknown, 02/21/20) Objective Last 24 Hour Vital Signs Date Time Temp Pulse Resp B/P (MAP) Pulse Ox O2 Delivery O2 Flow Rate FiO2 06/20/20 16:00 56 06/20/20 16:00 98.8 53 18 163/62 (95) 96 06/20/20 12:29 52 18 154/56 (88) 06/20/20 12:00 97.7 51 20 169/74 (105) 96 06/20/20 12:00 69 06/20/20 09:00 Room Air 06/20/20 08:00 97.6 63 20 151/58 (89) 95 06/20/20 08:00 70 06/20/20 04:00 53 06/20/20 04:00 97.6 52 20 158/70 (99) 98 06/20/20 00:00 97.8 56 20 146/70 (95) 97 06/20/20 00:00 56 06/19/20 21:00 Room Air 06/19/20 20:00 97.8 56 20 150/70 (96) 97 Height (Feet): 5 Height (Inches): 8.00 Weight (Pounds): 187 General Appearance: no acute distress HEENT: mucous membranes moist Respiratory/Chest: lungs clear Cardiovascular: normal rate Abdomen: soft, non tender Extremities: no edema, other - SCD of legs Neurologic/Psychiatric: alert, responsive Laboratory Tests Test 06/20/20 04:45 White Blood Count 8.3 K/UL (4.8-10.8) Red Blood Count 3.07 M/UL (4.70-6.10) L Hemoglobin 9.3 G/DL (14.2-18.0) L Hematocrit 26.8 % (42.0-52.0) L Mean Corpuscular Volume 87 FL (80-99) Mean Corpuscular Hemoglobin 30.4 PG (27.0-31.0) Mean Corpuscular Hemoglobin Concent 34.8 G/DL (32.0-36.0) Red Cell Distribution Width 14.1 % (11.6-14.8) Platelet Count 224 K/UL (150-450) Mean Platelet Volume 8.1 FL (6.5-10.1) Neutrophils (%) (Auto) 64.5 % (45.0-75.0) Lymphocytes (%) (Auto) 22.2 % (20.0-45.0) Monocytes (%) (Auto) 9.9 % (1.0-10.0) Eosinophils (%) (Auto) 2.6 % (0.0-3.0) Basophils (%) (Auto) 0.7 % (0.0-2.0) Sodium Level 141 MMOL/L (136-145) Potassium Level 3.8 MMOL/L (3.5-5.1) Chloride Level 109 MMOL/L (98-107) H Carbon Dioxide Level 22 MMOL/L (21-32) Anion Gap 10 mmol/L (5-15) Blood Urea Nitrogen 20 mg/dL (7-18) H Creatinine 1.5 MG/DL (0.55-1.30) H Estimat Glomerular Filtration Rate 45.4 mL/min (>60) Glucose Level 104 MG/DL (74-106) Calcium Level 8.5 MG/DL (8.5-10.1) Phosphorus Level 3.0 MG/DL (2.5-4.9) Magnesium Level 1.9 MG/DL (1.8-2.4) Total Bilirubin 0.6 MG/DL (0.2-1.0) Aspartate Amino Transf (AST/SGOT) 27 U/L (15-37) Alanine Aminotransferase (ALT/SGPT) 62 U/L (12-78) Alkaline Phosphatase 164 U/L (46-116) H Total Protein 6.5 G/DL (6.4-8.2) Albumin 2.4 G/DL (3.4-5.0) L Globulin 4.1 g/dL Albumin/Globulin Ratio 0.6 (1.0-2.7) L Current Medications Medications (Trade) Dose Ordered Sig/Capo Route PRN Reason Start Time Stop Time Status Last Admin Dose Admin Acetaminophen (Tylenol) 500 mg Q4H PRN ORAL pain 06/15/20 20:00 07/15/20 19:59 Aspirin (Ecotrin) 81 mg DAILY ORAL 06/16/20 09:00 07/31/20 08:59 06/20/20 08:13 Dextrose/Sodium Chloride 1,000 ml @ 50 mls/hr Q20H IV 06/15/20 19:45 07/15/20 19:44 06/20/20 01:09 Docusate Sodium (Colace) 100 mg TID ORAL 06/16/20 09:00 07/16/20 08:59 06/19/20 10:10 Epoetin Catracho (Epoetin Catracho-EPBX(NON ESRD)) 2,000 unit SUBQ 06/17/20 21:00 09/15/20 20:59 06/19/20 21:36 Epoetin Catracho (Epoetin Catracho-EPBX(NON ESRD)) 3,000 unit SUBQ 06/17/20 21:00 09/15/20 20:59 06/19/20 21:36 Folic Acid (Folate) 1 mg DAILY ORAL 06/16/20 11:30 07/16/20 11:29 06/20/20 08:13 Pantoprazole (Protonix) 40 mg BID ORAL 06/16/20 09:00 07/16/20 08:59 06/20/20 16:47 Piperacillin Sod/ Tazobactam Sod 3.375 gm/Sodium Chloride 110 ml @ 27.5 mls/hr Q8H IVPB 06/16/20 17:00 06/23/20 16:59 06/20/20 16:47 Edward Ruvalcaba MD Jun 20, 2020 17:20
[2020-06-20] MEDS ORDERED: NS 275ml ONE (21:09)
[2020-06-20] MEDS ORDERED: D5 1/2NS 1000ml IV ONE (21:09)
[2020-06-20] MEDS ORDERED: Tubing IV Secondary IV ONE (21:09)
[2020-06-21] VITALS: BP 153/67
[2020-06-21] MEDS: Piperacillin/Tazobactam 3.375 GM in NS 110 ML IVPB SCH ×3 (01:22→17:24)
[2020-06-21 04:00] VITALS: BP 141/51
[2020-06-21 08:00] VITALS: BP 169/64
[2020-06-21] MEDS: Aspirin EC 81mg tab ORAL SCH (08:37)
[2020-06-21] MEDS: Docusate 100mg cap ORAL SCH ×3 (08:38→17:37)
--- NOTE | 2020-06-21 09:55 | General Progress Note ---
Subjective ROS Limited/Unobtainable: Yes Allergies: Coded Allergies: CODEINE (Verified Allergy, Unknown, 02/21/20) [id number] REDUCTASE INHIBITOR (Verified Allergy, Unknown, 02/21/20) Objective Last 24 Hour Vital Signs Date Time Temp Pulse Resp B/P (MAP) Pulse Ox O2 Delivery O2 Flow Rate FiO2 06/21/20 04:00 97.1 49 17 141/51 (81) 97 06/21/20 04:00 58 06/21/20 00:00 97.2 54 16 153/67 (95) 98 06/21/20 00:00 71 06/20/20 21:00 Room Air 06/20/20 20:00 56 06/20/20 20:00 97.9 62 20 163/58 (93) 97 06/20/20 16:00 56 06/20/20 16:00 98.8 53 18 163/62 (95) 96 06/20/20 12:29 52 18 154/56 (88) 06/20/20 12:00 97.7 51 20 169/74 (105) 96 06/20/20 12:00 69 Intake and Output 0 06/20/20 06/21/20 19:00 07:00 Intake Total 410 ml 870 ml Balance 410 ml 870 ml Intake Oral 360 ml 620 ml IV Total 50 ml 250 ml # Voids 4 3 # Bowel Movements 2 1 Height (Feet): 5 Height (Inches): 8.00 Weight (Pounds): 187 Assessment/Plan Problem List: (1) Altered mental status ICD Codes: R41.82 - Altered mental status, unspecified SNOMED: 446222992 (2) Fall ICD Codes: W19.XXXA - Unspecified fall, initial encounter SNOMED: 5422063, 562836803 (3) Bradycardia ICD Codes: R00.1 - Bradycardia, unspecified SNOMED: 69078651 (4) DAVEY (acute kidney injury) ICD Codes: N17.9 - Acute kidney failure, unspecified SNOMED: 1048742, 42103083 (5) UTI (urinary tract infection) ICD Codes: N39.0 - Urinary tract infection, site not specified SNOMED: 60839769 Status: progressing Assessment/Plan: reviewed chart is improving dc planning uti.abx per id Carly Chilel MD Jun 21, 2020 09:55
[2020-06-21 12:00] VITALS: BP 170/69
--- NOTE | 2020-06-21 12:54 | Nephrology Progress Note ---
Assessment/Plan Problem List: (1) DAVEY (acute kidney injury) (2) Dehydration (3) Altered mental status (4) Fall (5) Bradycardia (6) Anemia (7) UTI (urinary tract infection) Assessment Acute renal failure Dehydration Possible underlying chronic kidney disease Fall, bradycardia Encephalopathy Anemia UTI Psychiatric disease Plan June 21: No labs drawn today. Status quo. Medication list reviewed. Continue per consultants. Most recent serum creatinine 1.5 from yesterday. Stable from renal standpoint of view. June 20: Labs reviewed. Serum creatinine lower to 1.5. Medication list reviewed. Remains stable from renal standpoint of view. Continue per consultants. June 19: No labs drawn today. Most recent renal parameter stable with serum creatinine of 2. Medication list reviewed. Stable from renal standpoint of view. Will repeat labs for tomorrow. Continue per consultants. June 18: Status quo. Serum creatinine unchanged. Electrolytes acceptable. Continue as is. June 17: Labs reviewed. Serum creatinine stable. Continue current mirella gement. Blood pressure stable. June 16: Magnesium and potassium supplement. Folic acid p.o. supplement. Continue slow hydration. Monitor renal parameters. Antibiotics for UTI. Subjective ROS Limited/Unobtainable: No Constitutional: Reports: malaise, weakness Objective Objective Last 24 Hour Vital Signs Date Time Temp Pulse Resp B/P (MAP) Pulse Ox O2 Delivery O2 Flow Rate FiO2 06/21/20 09:00 Room Air 06/21/20 08:00 65 06/21/20 08:00 97.7 66 20 169/64 (99) 95 06/21/20 04:00 97.1 49 17 141/51 (81) 97 06/21/20 04:00 58 06/21/20 00:00 97.2 54 16 153/67 (95) 98 06/21/20 00:00 71 06/20/20 21:00 Room Air 06/20/20 20:00 56 06/20/20 20:00 97.9 62 20 163/58 (93) 97 06/20/20 16:00 56 06/20/20 16:00 98.8 53 18 163/62 (95) 96 Intake and Output 06/20/20 06/21/20 19:00 07:00 Intake Total 410 ml 870 ml Balance 410 ml 870 ml Intake Oral 360 ml 620 ml IV Total 50 ml 250 ml # Voids 4 3 # Bowel Movements 2 1 Current Medications Medications (Trade) Dose Ordered Sig/Capo Route PRN Reason Start Time Stop Time Status Last Admin Dose Admin Acetaminophen (Tylenol) 500 mg Q4H PRN ORAL pain 06/15/20 20:00 07/15/20 19:59 Aspirin (Ecotrin) 81 mg DAILY ORAL 06/16/20 09:00 07/31/20 08:59 06/21/20 08:37 Dextrose/Sodium Chloride 1,000 ml @ 50 mls/hr Q20H IV 06/15/20 19:45 07/15/20 19:44 06/20/20 20:52 Docusate Sodium (Colace) 100 mg TID ORAL 06/16/20 09:00 07/16/20 08:59 06/19/20 10:10 Epoetin Catracho (Epoetin Catracho-EPBX(NON ESRD)) 2,000 unit MON-MON-MON SUBQ 06/17/20 21:00 09/15/20 20:59 06/19/20 21:36 Epoetin Catracho (Epoetin Catracho-EPBX(NON ESRD)) 3,000 unit MON-MON-MON SUBQ 06/17/20 21:00 09/15/20 20:59 06/19/20 21:36 Folic Acid (Folate) 1 mg DAILY ORAL 06/16/20 11:30 07/16/20 11:29 06/21/20 08:37 Pantoprazole (Protonix) 40 mg BID ORAL 06/16/20 09:00 07/16/20 08:59 06/21/20 08:37 Piperacillin Sod/ Tazobactam Sod 3.375 gm/Sodium Chloride 110 ml @ 27.5 mls/hr Q8H IVPB 06/16/20 17:00 06/23/20 16:59 06/21/20 08:37 Height (Feet): 5 Height (Inches): 8.00 Weight (Pounds): 187 General Appearance: no apparent distress Cardiovascular: normal rate, arrhythmia Respiratory/Chest: decreased breath sounds Abdomen: distended Aristides Rivas MD Jun 21, 2020 12:54
--- NOTE | 2020-06-21 15:31 | Cardiac Electrophysiology PN ---
Assessment/Plan Assessment/Plan 1. Status post fall. First troponin is negative. Second troponin is mildly elevated that could be due to renal failure. It could be due to dehydration. Also had bradycardia with heart rate down to 30s. Watch the patient on telemetry, on IV fluids. Echo EF 65% May need pacer after sepsis is resolved 2. History of atrial fibrillation, currently on aspirin and off beta-zarina and may be that is because of patient's syncope and sick sinus syndrome and patient's paroxysmal atrial fibrillation. Also bradycardic in 40s. S/P DCCV in the past 3. Renal failure, creatinine of 2. Fu by Dr. Rivas. 4. High WBC 27K on iv Abx. Improved to 9K DW RN Subjective Subjective HR 40s- 60. Was as low as 36. In Seizure precaution. Hx of DCCV and arrest in the past. RN at bedside Objective Last 24 Hour Vital Signs Date Time Temp Pulse Resp B/P (MAP) Pulse Ox O2 Delivery O2 Flow Rate FiO2 06/21/20 12:00 97.9 65 18 170/69 (102) 96 06/21/20 12:00 57 06/21/20 09:00 Room Air 06/21/20 08:00 65 06/21/20 08:00 97.7 66 20 169/64 (99) 95 06/21/20 04:00 97.1 49 17 141/51 (81) 97 06/21/20 04:00 58 06/21/20 00:00 97.2 54 16 153/67 (95) 98 06/21/20 00:00 71 06/20/20 21:00 Room Air 06/20/20 20:00 56 06/20/20 20:00 97.9 62 20 163/58 (93) 97 06/20/20 16:00 56 06/20/20 16:00 98.8 53 18 163/62 (95) 96 Intake and Output 06/20/20 06/21/20 19:00 07:00 Intake Total 410 ml 870 ml Balance 410 ml 870 ml Intake Oral 360 ml 620 ml IV Total 50 ml 250 ml # Voids 4 3 # Bowel Movements 2 1 Objective HEAD AND NECK: No JVD. LUNGS: Coarse rhonchi. CARDIOVASCULAR: Regular S1 and S2 with no gallop or murmur. ABDOMEN: Soft. EXTREMITIES: No pitting edema. Virgil Keating MD Jun 21, 2020 15:31
[2020-06-21 15:51] VITALS: BP 139/72
[2020-06-21] MEDS: D5 1/2NS 1,000 ML IV SCH (17:25)
[2020-06-21 20:00] VITALS: BP 154/70
[2020-06-22] VITALS: BP 143/77
[2020-06-22] MEDS: Piperacillin/Tazobactam 3.375 GM in NS 110 ML IVPB SCH ×2 (00:42→09:09)
[2020-06-22 04:00] VITALS: BP 147/69
[2020-06-22 08:00] VITALS: BP 143/56
[2020-06-22 08:57] LABS: ALBUMIN 2.9 G/DL (3.4-5.0); ALBUMIN/GLOBULIN RATIO 0.7 (1.0-2.7); BILIRUBIN,TOTAL 0.5 MG/DL (0.2-1.0); CALCIUM 9.2 MG/DL (8.5-10.1); CREATININE 1.4 MG/DL (0.55-1.30); PHOSPHORUS 3.4 MG/DL (2.5-4.9); POTASSIUM 3.7 MMOL/L (3.5-5.1)
[2020-06-22] MEDS: Docusate 100mg cap ORAL SCH ×2 (09:08→13:00)
[2020-06-22] MEDS: Aspirin EC 81mg tab ORAL SCH (09:08)
--- NOTE | 2020-06-22 10:24 | Nephrology Progress Note ---
Assessment/Plan Problem List: (1) DAVEY (acute kidney injury) (2) Dehydration (3) Altered mental status (4) Fall (5) Bradycardia (6) Anemia (7) UTI (urinary tract infection) Assessment Acute renal failure Dehydration Possible underlying chronic kidney disease Fall, bradycardia Encephalopathy Anemia UTI Psychiatric disease Plan June 22: Labs reviewed. Serum creatinine lower 1.4. Heart rate variable at times bradycardic. Continue per consultants. Medication list reviewed. Patient periodically agitated. As needed anxiolytic and BP meds will be given. June 21: No labs drawn today. Status quo. Medication list reviewed. Continue per consultants. Most recent serum creatinine 1.5 from yesterday. Stable from renal standpoint of view. June 20: Labs reviewed. Serum creatinine lower to 1.5. Medication list reviewed. Remains stable from renal standpoint of view. Continue per consultants. June 19: No labs drawn today. Most recent renal parameter stable with serum creatinine of 2. Medication list reviewed. Stable from renal standpoint of carolyn w. Will repeat labs for tomorrow. Continue per consultants. June 18: Status quo. Serum creatinine unchanged. Electrolytes acceptable. Continue as is. June 17: Labs reviewed. Serum creatinine stable. Continue current management. Blood pressure stable. June 16: Magnesium and potassium supplement. Folic acid p.o. supplement. Continue slow hydration. Monitor renal parameters. Antibiotics for UTI. Subjective ROS Limited/Unobtainable: No Constitutional: Reports: malaise Objective Objective Last 24 Hour Vital Signs Date Time Temp Pulse Resp B/P (MAP) Pulse Ox O2 Delivery O2 Flow Rate FiO2 06/22/20 07:40 81 06/22/20 04:00 97.9 45 24 147/69 (95) 97 06/22/20 04:00 45 06/22/20 00:00 62 06/22/20 00:00 97.1 62 24 143/77 (99) 98 06/21/20 21:00 Room Air 06/21/20 20:00 98.1 55 20 154/70 (98) 97 06/21/20 20:00 55 06/21/20 16:00 71 06/21/20 15:51 97.5 67 20 139/72 (94) 95 06/21/20 12:00 97.9 65 18 170/69 (102) 96 06/21/20 12:00 57 Intake and Output 06/21/20 06/22/20 19:00 07:00 Intake Total 960 ml Balance 960 ml Intake Oral 360 ml IV Total 600 ml # Voids 4 1 # Bowel Movements 2 Current Medications Medications (Trade) Dose Ordered Sig/Capo Route PRN Reason Start Time Stop Time Status Last Admin Dose Admin Acetaminophen (Tylenol) 500 mg Q4H PRN ORAL pain 06/15/20 20:00 07/15/20 19:59 Aspirin (Ecotrin) 81 mg DAILY ORAL 06/16/20 09:00 07/31/20 08:59 06/22/20 09:08 Dextrose/Sodium Chloride 1,000 ml @ 50 mls/hr Q20H IV 06/15/20 19:45 07/15/20 19:44 06/21/20 17:25 Docusate Sodium (Colace) 100 mg TID ORAL 06/16/20 09:00 07/16/20 08:59 06/22/20 09:08 Epoetin Catracho (Epoetin Catracho-EPBX(NON ESRD)) 2,000 unit -MON SUBQ 06/17/20 21:00 09/15/20 20:59 06/19/20 21:36 Epoetin Catracho (Epoetin Catracho-EPBX(NON ESRD)) 3,000 unit MON-MON-MON SUBQ 06/17/20 21:00 09/15/20 20:59 06/19/20 21:36 Folic Acid (Folate) 1 mg DAILY ORAL 06/16/20 11:30 07/16/20 11:29 06/22/20 09:08 Pantoprazole (Protonix) 40 mg BID ORAL 06/16/20 09:00 07/16/20 08:59 06/22/20 09:08 Piperacillin Sod/ Tazobactam Sod 3.375 gm/Sodium Chloride 110 ml @ 27.5 mls/hr Q8H IVPB 06/16/20 17:00 06/23/20 16:59 06/22/20 09:09 Laboratory Tests 06/22/20 06:33: Sodium Level 140, Potassium Level 3.7, Chloride Level 106, Carbon Dioxide Level 24, Anion Gap 11, Blood Urea Nitrogen 14, Creatinine 1.4H, Estimat Glomerular Filtration Rate 49.1, Glucose Level 128H, Calcium Level 9.2, Phosphorus Level 3.4, Magnesium Level 2.0, Total Bilirubin 0.5, Aspartate Amino Transf (AST/SGOT) 22, Alanine Aminotransferase (ALT/SGPT) 44, Alkaline Phosphatase 155H, Total Protein 7.3, Albumin 2.9L, Globulin 4.4, Albumin/Globulin Ratio 0.7L Height (Feet): 5 Height (Inches): 8.00 Weight (Pounds): 187 General Appearance: no apparent distress Cardiovascular: bradycardia, other - Variable Respiratory/Chest: decreased breath sounds, other Abdomen: distended Aristides Rivas MD Jun 22, 2020 10:24
[2020-06-22] MEDS ORDERED: LORazepam 1mg tab ORAL SCH (10:45)
[2020-06-22 12:00] VITALS: BP 158/60
[2020-06-22 13:31] VITALS: BP 173/70
--- NOTE | 2020-06-22 14:16 | Cardiac Electrophysiology PN ---
Assessment/Plan Assessment/Plan 1. Status post fall. First troponin is negative. Second troponin is mildly elevated that could be due to renal failure. It could be due to dehydration. Had bradycardia with heart rate down to 45 when sleeping. On IV fluids. Echo EF 65% 2. History of atrial fibrillation, currently on aspirin and off beta-zarina as was bradycardic in 40s. S/P DCCV in the past 3. Renal failure, creatinine of 2. Cr improved to 1.[address] Rivas. 4. High WBC 27K on iv Abx. Improved to 8 K 5. HTN add Norvasc 5 mg daily. Add prn Clonidine DW RN Subjective Subjective In Seizure precaution. DC held as BP was 180s. Hx of DCCV and arrest in the past. RN at bedside Objective Last 24 Hour Vital Signs Date Time Temp Pulse Resp B/P (MAP) Pulse Ox O2 Delivery O2 Flow Rate FiO2 06/22/20 13:31 173/70 06/22/20 12:11 65 20 158/60 98 06/22/20 12:00 65 158/60 (92) 06/22/20 11:41 68 143/56 06/22/20 11:41 68 24 143/56 97 06/22/20 09:00 Room Air 06/22/20 08:00 97.7 45 24 143/56 (85) 97 06/22/20 07:40 81 06/22/20 04:00 97.9 45 24 147/69 (95) 97 06/22/20 04:00 45 06/22/20 00:00 62 06/22/20 00:00 97.1 62 24 143/77 (99) 98 06/21/20 21:00 Room Air 06/21/20 20:00 98.1 55 20 154/70 (98) 97 06/21/20 20:00 55 06/21/20 16:00 71 06/21/20 15:51 97.5 67 20 139/72 (94) 95 Intake and Output 06/21/20 06/22/20 19:00 07:00 Intake Total 960 ml Balance 960 ml Intake Oral 360 ml IV Total 600 ml # Voids 4 1 # Bowel Movements 2 Laboratory Tests Test 06/22/20 06:33 Sodium Level 140 MMOL/L (136-145) Potassium Level 3.7 MMOL/L (3.5-5.1) Chloride Level 106 MMOL/L (98-107) Carbon Dioxide Level 24 MMOL/L (21-32) Anion Gap 11 mmol/L (5-15) Blood Urea Nitrogen 14 mg/dL (7-18) Creatinine 1.4 MG/DL (0.55-1.30) H Estimat Glomerular Filtration Rate 49.1 mL/min (>60) Glucose Level 128 MG/DL (74-106) H Calcium Level 9.2 MG/DL (8.5-10.1) Phosphorus Level 3.4 MG/DL (2.5-4.9) Magnesium Level 2.0 MG/DL (1.8-2.4) Total Bilirubin 0.5 MG/DL (0.2-1.0) Aspartate Amino Transf (AST/SGOT) 22 U/L (15-37) Alanine Aminotransferase (ALT/SGPT) 44 U/L (12-78) Alkaline Phosphatase 155 U/L (46-116) H Total Protein 7.3 G/DL (6.4-8.2) Albumin 2.9 G/DL (3.4-5.0) L Globulin 4.4 g/dL Albumin/Globulin Ratio 0.7 (1.0-2.7) L Objective HEAD AND NECK: No JVD. LUNGS: Coarse rhonchi. CARDIOVASCULAR: Regular S1 and S2 with no gallop or murmur. ABDOMEN: Soft. EXTREMITIES: No pitting edema. Virgil Keating MD Jun 22, 2020 14:16
[2020-06-22] MEDS ORDERED: D5 1/2NS 1000ml IV ONE (15:41)
--- NOTE | 2020-06-23 09:48 | Discharge Summary ---
Discharge Summary Discharge Summary _ DATE OF ADMISSION: 06/15/2020 DATE OF DISCHARGE: 06/22/2020 DISCHARGED BY: Dr. Chilel REASON FOR ADMISSION: 79 years old male, with past medical history of hypertension, asthma, diabetes, seizure disorder, atrial fibrillation, on anticoagulation, resident of assisted living, presented for evaluation after a fall. Patient was found lying on the ground. Patient was altered. Staff reported prior history of urinary tract infection. Upon evaluation patient was hypothermic, bradycardic , and hypotensive. Laboratory work-up revealed leukocytosis WBC 12.0; and anemia Hgb 9.5. Chemistry showed renal failure with BUN 46 , creatinine 2.0. Lactic acid 1.4 Troponin 0.019 . EKG revealed sinus bradycardia, no acute ischemic changes CRP 1.2 Stable LFT Albumin 2.7 Urinalysis revealed +2 protein , +3 leukocyte esterase, pyuria and many bacteria . CT of the head revealed old infarcts , but no acute intracranial pathology. CT scan of the abdomen and pelvis demonstrated colonic diverticulosis without evidence of diverticulitis. No definite acute abdominal or pelvic abnormality. Patient received IV atropine for bradycardia , ed empiric antibiotic, started on IV hydration and subsequently admitted for further management. CONSULTANTS: career services officer ID specialist Dr. Edward Ruvalcaba vp training Dr. Rivas HOSPITAL COURSE: Patient admitted to telemetry floor and started on IV fluids and empiric antibiotic. First troponin was negative. Second troponin was mildly elevated 0.09, possibly due to renal failure, as per career services officer No complaints of chest pain. Patient had bradycardia with heart rate down to 45 while sleeping . Patient was on the IV fluids . Echocardiogram revealed preserved ejection fraction. Patient also was off beta-zarina given bradycardia. Status post DCCV in the past. Aspirin continued. ' Blood pressure was managed with calcium channel zarina. Additional antihypertensive were on board as needed for blood pressure spikes. Patient noted to have increased leukocytosis ; the next day after admission WBC 27.4. No fevers. Blood cultures were negative . Urine culture revealed E. coli ESBL. Patient was continue on antibiotics as per ID specialist recommendation Renal parameters and electrolytes were closely monitored, electrolytes corrected as needed, and nephrotoxic's were avoided. Urine studies were done. Potassium and magnesium were replaced. Prior to discharge creatinine from 2.0 down to 1.4. Hemoglobin and hematocrit were closely monitored with goal to keep hemoglobin above 7 ; prior to discharge hemoglobin 9.3 , hematocrit 26.8 . GI prophylaxis provided. Bowel regimen instituted. Supportive care provided. Fall precaution maintained. Patient clinically stabilized and was ready for discharge . FINAL DIAGNOSES: Status post fall Acute kidney injury Dehydration Encephalopathy E. coli ESBL UTI Leukocytosis -resolved Atrial fibrillation, status post DCCV in the past Hypertension Bradycardia History of CVA Anemia DISCHARGE MEDICATIONS: See Medication Reconciliation list. DISCHARGE INSTRUCTIONS: Patient was discharged to assisted living. Follow-up with a primary care provider in 1 week. I have been assigned to dictate discharge summary for this account. I was not involved in the patient's management. Kalpana Cook NP Jun 23, 2020 09:48
--- NOTE | 2020-06-26 13:37 | Cardiology Report ---
APPROVED REPORT EKG Measurement Heart [id number] <Conclusion> Marked sinus bradycardia Nonspecific intraventricular conduction delay Nonspecific T wave abnormality Abnormal ECG
== END 2020-06-22 15:42 | DRG 682 ==
LOC: EDBD 13:30 → EDUNIT# 13:30 → EMR 15:37 → EDBEDREQ 15:42 → 2E 15:58 → EDBEDREQ 16:32
DX: N17.9 Acute kidney failure, unspecified (principal); G93.41 Metabolic encephalopathy; N39.0 Urinary tract infection, site not specified; Z16.12 Extended spectrum beta lactamase (ESBL) resistance; E86.0 Dehydration; I12.9 Hypertensive chronic kidney disease with stage 1 through stage 4 chronic kidney disease, or unspecified chronic kidney disease; N18.9 Chronic kidney disease, unspecified; Z88.6 Allergy status to analgesic agent; Z88.8 Allergy status to other drugs, medicaments and biological substances; Z79.01 Long term (current) use of anticoagulants; H40.9 Unspecified glaucoma; K21.9 Gastro-esophageal reflux disease without esophagitis; N40.0 Benign prostatic hyperplasia without lower urinary tract symptoms; R00.1 Bradycardia, unspecified; Z91.81 History of falling; J45.909 Unspecified asthma, uncomplicated; B96.20 Unspecified Escherichia coli [E. coli] as the cause of diseases classified elsewhere; I48.91 Unspecified atrial fibrillation; Z86.73 Personal history of transient ischemic attack (TIA), and cerebral infarction without residual deficits; D64.9 Anemia, unspecified; T68.XXXA Hypothermia, initial encounter; K57.90 Diverticulosis of intestine, part unspecified, without perforation or abscess without bleeding; F99 Mental disorder, not otherwise specified
CPT/HCPCS: 36415; 70450; 74176; 80053; 80061; 81003; 82550; 82607; 82728; 82746; 82977; 83036; 83540; 83550; 83605; 83735; 83880; 84100; 84439; 84443; 84484; 84550; 85007; 85025; 85610; 85730; 86140; 86850; 86900; 86901; 87040; 87081; 87086; 87181; 93005; 93306; 96365; 96375; 99285; J7030